=== PATIENT | female | born 1950 | race Caucasian/White ===

== ENCOUNTER → 2017-11-24 07:03 | Outpatient (CLI) | payer OTHER, SELFPAY ==
[2017-11-24 07:49] LABS: Add Manual Diff / Slide Review NO; Basophils Percent Auto 1.2 % (0-2); Eosinophils Percent Auto 5.9 % (2-4); Hematocrit 41.7 % (36-46); Hemoglobin 14.7 g/dL (12.0-16.0); Lymphocytes Percent Auto 30.4 % (25-40); Mean Corpuscular HGB Conc 35.2 % (30-36); Mean Corpuscular Hemoglobin 32.9 PG (26-34); Mean Corpuscular Volume 93.4 fL (80-100); Neutrophils Absolute Auto 1600 /uL (3000-5900); Neutrophils Percent Auto 47.5 % (50-75); Platelet Count 210 X10^3/uL (150-400); Red Blood Cell Count 4.46 X10^6/uL (4.0-5.2); White Blood Cell Count 3.3 X10^3/uL (4.5-11.0)
[2017-11-24 08:06] LABS: Alanine Aminotransferase 33 IU/L (9-52); Albumin 4.5 g/dL (3.5-5.0); Albumin Globulin Ratio 1.6 (1.0-2.8); Alkaline Phosphatase 75 U/L (38-126); Aspartate Aminotransferase 30 IU/L (14-36); Blood Urea Nitrogen 8 mg/dL (7-17); Calcium 9.4 mg/dL (8.4-10.2); Carbon Dioxide 29 mmol/L (22-32); Chloride 101 mmol/L (98-107); Estimated Glomerular Filt Rate > 60.0 mL/min (>60); Globulin 2.9 g/dL (1.7-4.1); Glucose 87 mg/dL (80-110); HEMOLYSIS < 15 (0-50); Potassium 4.2 mmol/L (3.4-5.1); Sodium 140 mmol/L (137-145); Total Protein 7.4 g/dL (6.3-8.2)
[2017-11-24 09:22] LABS: Free T4, Direct Thyroxine 0.78 ng/dL (0.78-2.19)
[2017-11-24 09:36] LABS: Thyroid Stimulating Hormone 8.29 uIU/mL (0.47-4.68)
[2017-11-24 11:55] LABS: Cholesterol 224 mg/dL (140-199); HDL Cholesterol 58 mg/dL (40-60); LDL Cholesterol Calculated 151 mg/dL (<100); Triglycerides 76 mg/dL (35-150)
== END ==
PROVIDERS: PCP Internal Medicine; Visit Provider Internal Medicine
DX: E03.9 Hypothyroidism, unspecified (principal); E78.2 Mixed hyperlipidemia; I10 Essential (primary) hypertension; E78.5 Hyperlipidemia, unspecified
CPT/HCPCS: 80053; 80061; 84439; 84443; 85025

== ENCOUNTER → 2018-02-09 10:44 | Outpatient (CLI) | payer OTHER, SELFPAY ==
[2018-02-09 12:11] LABS: Add Manual Diff / Slide Review NO; Basophils Percent Auto 0.8 % (0-2); Eosinophils Percent Auto 1.9 % (2-4); Hematocrit 41.6 % (36-46); Hemoglobin 14.6 g/dL (12.0-16.0); Lymphocytes Percent Auto 19.7 % (25-40); Mean Corpuscular Hemoglobin 32.8 PG (26-34); Mean Corpuscular Volume 93.5 fL (80-100); Monocytes Percent Auto 13.2 % (3-14); Neutrophils Absolute Auto 2500 /uL (3000-5900); Neutrophils Percent Auto 64.4 % (50-75); Platelet Count 204 X10^3/uL (150-400); Red Blood Cell Count 4.45 X10^6/uL (4.0-5.2); Red Cell Distribution Width 12.9 % (11.6-14.8); White Blood Cell Count 3.9 X10^3/uL (4.5-11.0)
[2018-02-09 12:22] LABS: Erythrocyte Sedimentation Rate 15 MM/HR (0-20)
[2018-02-09 12:25] LABS: Alanine Aminotransferase 32 IU/L (9-52); Albumin 4.9 g/dL (3.5-5.0); Albumin Globulin Ratio 1.5 (1.0-2.8); Alkaline Phosphatase 80 U/L (38-126); Aspartate Aminotransferase 32 IU/L (14-36); Bilirubin Total 0.9 mg/dL (0.2-1.3); Blood Urea Nitrogen 12 mg/dL (7-17); Calcium 9.5 mg/dL (8.4-10.2); Carbon Dioxide 28 mmol/L (22-32); Chloride 97 mmol/L (98-107); Estimated Glomerular Filt Rate > 60.0 mL/min (>60); Globulin 3.2 g/dL (1.7-4.1); Glucose 85 mg/dL (80-110); HEMOLYSIS < 15 (0-50); Magnesium 2.2 mg/dL (1.6-2.3); Potassium 4.3 mmol/L (3.4-5.1); Sodium 137 mmol/L (137-145); Total Protein 8.1 g/dL (6.3-8.2)
[2018-02-09 12:27] LABS: C-Reactive Protein Quant < 0.5 mg/dL (<1.0)
[2018-02-09 13:36] LABS: Free T4, Direct Thyroxine 1.06 ng/dL (0.78-2.19)
== END ==
PROVIDERS: PCP Internal Medicine; Visit Provider Internal Medicine
DX: E03.9 Hypothyroidism, unspecified (principal); E78.2 Mixed hyperlipidemia; I10 Essential (primary) hypertension
CPT/HCPCS: 36415; 80053; 83735; 84439; 84443; 85025; 85651; 86140

== ENCOUNTER → 2018-02-13 09:10 | Outpatient (CLI) | payer OTHER, SELFPAY ==
--- NOTE | 2018-03-12 07:12 | PM.CARDMON.1 ---
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 No significant dysrhythmias identified Clinical correlation suggested
== END ==
PROVIDERS: Family Provider Internal Medicine; PCP Internal Medicine; Visit Provider Internal Medicine
DX: I49.9 Cardiac arrhythmia, unspecified (principal)
CPT/HCPCS: 0296T; 0298T

== ENCOUNTER → 2019-11-09 07:56 | Outpatient (CLI) | payer OTHER, SELFPAY ==
[2019-11-09 08:56] LABS: Alanine Aminotransferase 21 IU/L (<35); Albumin 4.5 g/dL (3.5-5.0); Albumin Globulin Ratio 1.5 (1.0-2.8); Alkaline Phosphatase 83 U/L (38-126); Aspartate Aminotransferase 32 IU/L (14-36); BUN Creatinine Ratio 14.9 (6-22); Bilirubin Total 1.1 mg/dL (0.2-1.3); Blood Urea Nitrogen 7 mg/dL (7-17); Calcium 9.2 mg/dL (8.4-10.2); Carbon Dioxide 26 mmol/L (22-32); Chloride 102 mmol/L (98-107); Cholesterol 173 mg/dL (140-199); Estimated Glomerular Filt Rate > 60.0 mL/min (>60); Glucose 95 mg/dL (80-110); HDL Cholesterol 69 mg/dL (40-60); HEMOLYSIS < 15 (0-50); LDL Cholesterol Calculated 94 mg/dL (<100); Potassium 4.1 mmol/L (3.4-5.1); Sodium 135 mmol/L (137-145); Total Protein 7.5 g/dL (6.3-8.2); Triglycerides 50 mg/dL (35-150)
[2019-11-09 09:22] LABS: Thyroid Stimulating Hormone 2.35 uIU/mL (0.47-4.68)
== END ==
PROVIDERS: Family Provider Internal Medicine; PCP Internal Medicine; Referring Provider Internal Medicine; Visit Provider Internal Medicine
DX: E03.9 Hypothyroidism, unspecified (principal); E78.2 Mixed hyperlipidemia; I10 Essential (primary) hypertension
CPT/HCPCS: 36415; 80053; 80061; 84439; 84443

== ENCOUNTER → 2020-02-11 16:36 | Outpatient (CLI) | payer OTHER, SELFPAY ==
[2020-02-11 18:58] LABS: BUN Creatinine Ratio 23.3 (6-22); Blood Urea Nitrogen 10 mg/dL (7-17); Estimated Glomerular Filt Rate > 60.0 mL/min (>60)
== END ==
PROVIDERS: Family Provider Internal Medicine; PCP Internal Medicine; Referring Provider Internal Medicine; Visit Provider Internal Medicine
DX: Z01.812 Encounter for preprocedural laboratory examination (principal)
CPT/HCPCS: 36415; 82565; 84520

== ENCOUNTER → 2020-02-20 10:25 | Outpatient (CLI) | payer OTHER, SELFPAY ==
--- NOTE | 2020-02-20 10:43 | DI.CT.S_ITS ---
PROCEDURE: CT CHEST ABD PEL W CON INDICATIONS: left upper quad pain TECHNIQUE: After the administration of oral and intravenous contrast, 5 mm thick sections acquired from the lung apices to the symphysis. 5 mm coronal and sagittal reformats were performed, with additional 7 mm coronal MIP reformats through the lungs. For radiation dose reduction, the following was used: automated exposure control, adjustment of mA and/or kV according to patient size. COMPARISON: [facility], CT, ABDOMEN/PELVIS WITH CONTRAST, 04/23/2015, 12:35. FINDINGS: Image quality: Excellent. CHEST: Lungs and pleura: No acute airspace opacities. No pleural effusions or pneumothorax. Central and peripheral airways appear patent and normal in caliber. Mediastinum: Heart size is normal. No pericardial effusion. No mediastinal or hilar adenopathy by size criteria. Thoracic aorta and central pulmonary arteries are normal in size. Esophagus is normal in caliber. No hiatal hernia. Chest wall: No axillary or supraclavicular adenopathy by size criteria. Thyroid gland appears normal where well seen. Prior bilateral mastectomy, no adenopathy or recurrent mass lesion in the operative regions is found. ABDOMEN: Solid organs: Liver is normal in size and enhancement. Gallbladder appears normal. Biliary system is non dilated. Pancreas enhances normally. Spleen is normal in size and enhancement. No adrenal nodules. Kidneys demonstrate normal size and enhancement, without hydronephrosis. Peritoneum and bowel: Bowel loops demonstrate normal wall thickness and caliber. No free fluid or air. Nodes and vessels: No retroperitoneal or mesenteric adenopathy by size criteria. Aorta and inferior vena cava are normal in size. Miscellaneous: No ventral hernias. PELVIS: Genitourinary: Bladder wall thickness is normal. Miscellaneous: No inguinal hernias or adenopathy. Within the cecum there is a masslike structure, ovoid, and best seen on axial imaging centered on series 3, image 88. This measures up to 2.4 x 3.1 cm, and on the coronal and sagittal re-formation imaging this structure can be seen to be surrounded by stool within the cecum, with an appearance worrisome for representing a malignant or benign mass measuring up to 3.6 cm craniocaudad. No adjacent hyperemia or small lymph nodes are seen. No enlarged lymph nodes are identified. Bones: No suspicious bony lesions. Note is made of discogenic sclerosis between the posterior aspect of the L2 and L3 endplates, within the vertebral bodies, representing a progression of discogenic change from the comparison CT 04/23/15. No osseous metastatic disease is found. No vertebral body compression fractures. IMPRESSION: 1. The clinical history indicates left upper quadrant pain but the current examination does not show a discrete abnormality in that area. 2. Note is made of an ovoid soft tissue mass at the cecum, right lower quadrant, measuring up to 2.4 x 3.1 x 3.6 cm. This is surrounded by stool on all sides, and yet appears to represent a discrete entity separate from stool content. This raises concern for presence of benign or malignant mass. Given positioning it likely is not associated with current symptomatology but warrants additional evaluation. Villous adenoma, for example, can produce such an appearance. 3. Degenerative disc disease with reactive sclerosis is again seen at L2-L3, having progressed from a lesser degree of sclerotic change in April of 2015. Dictated by: Jason Weiss M.D. on 02/20/2020 at 13:34 Approved by: Jason Weiss M.D. on 02/20/2020 at 13:49
== END ==
PROVIDERS: Family Provider Internal Medicine; PCP Internal Medicine; Referring Provider Internal Medicine; Visit Provider Internal Medicine
DX: R07.89 Other chest pain (principal); R10.12 Left upper quadrant pain; M51.36 Other intervertebral disc degeneration, lumbar region; K63.9 Disease of intestine, unspecified; R10.13 Epigastric pain; R00.2 Palpitations
CPT/HCPCS: 71260; 74177; Q9967

== ENCOUNTER 2020-02-20 17:09 | Observation (INO) | payer OTHER, SELFPAY ==
[2020-02-20] VITALS (10 sets, daily range): BP systolic 144–178; BP diastolic 74–106; PULSE 78–120; RESP 13–28; TEMP 36.4–36.7; O2SAT 98–100; BMI 28.8
--- NOTE | 2020-02-20 19:28 | DI.RAD.S_ITS ---
PROCEDURE: XR CHEST 1V INDICATIONS: chest pain TECHNIQUE: One view of the chest was acquired. COMPARISON: [facility], CT, CT CHEST ABD PEL W CON, 02/20/2020, 11:33. [facility], CR, ABDOMEN ACUTE SERIES, 02/15/2016, 13:55. FINDINGS: Surgical changes and devices: None. Lungs and pleura: Lungs are clear. No pleural effusions or pneumothorax. Mediastinum: Mediastinal contours appear normal. Heart size is normal. Bones and chest wall: No suspicious bony lesions. Overlying soft tissues appear unremarkable. IMPRESSION: No acute cardiopulmonary disease. Dictated by: Carlos Rodriguez M.D. on 02/20/2020 at 20:18 Approved by: Carlos Rodriguez M.D. on 02/20/2020 at 20:19
[2020-02-20 19:43] LABS: Add Manual Diff / Slide Review NO; Basophils Absolute Auto 100 /uL (0-100); Basophils Percent Auto 0.8 % (0-2); Eosinophils Absolute Auto 100 /uL (0-450); Eosinophils Percent Auto 1.6 % (2-4); Hematocrit 43.1 % (36-46); Hemoglobin 14.9 g/dL (12.0-16.0); Lymphocytes Absolute Auto 1300 /uL (1100-4500); Lymphocytes Percent Auto 20.8 % (25-40); Mean Corpuscular HGB Conc 34.5 % (30-36); Mean Corpuscular Hemoglobin 32.2 PG (26-34); Mean Corpuscular Volume 93.3 fL (80-100); Monocytes Absolute Auto 700 /uL (0-900); Monocytes Percent Auto 11.4 % (3-14); Neutrophils Absolute Auto 3900 /uL (1500-7000); Neutrophils Percent Auto 65.4 % (50-75); Platelet Count 218 X10^3/uL (150-400); Red Blood Cell Count 4.62 X10^6/uL (4.0-5.2); Red Cell Distribution Width 13.2 % (11.6-14.8)
[2020-02-20 19:46] LABS: Prothrombin Time 11.8 SECONDS (10.1-12.7)
[2020-02-20 19:48] LABS: Alanine Aminotransferase 21 IU/L (<35); Albumin 4.7 g/dL (3.5-5.0); Albumin Globulin Ratio 1.6 (1.0-2.8); Alkaline Phosphatase 90 U/L (38-126); Aspartate Aminotransferase 32 IU/L (14-36); BUN Creatinine Ratio 22.7 (6-22); Bilirubin Total 1.1 mg/dL (0.2-1.3); Blood Urea Nitrogen 10 mg/dL (7-17); Calcium 9.2 mg/dL (8.4-10.2); Carbon Dioxide 25 mmol/L (22-32); Chloride 102 mmol/L (98-107); Creatine Kinase 75 U/L (30-135); Estimated Glomerular Filt Rate > 60.0 mL/min (>60); Glucose 99 mg/dL (80-110); HEMOLYSIS 19 (0-50); Lipase 57 U/L (23-300); PTT Partial Thromboplastin Tim 31 SECONDS (26.4-36.2); Sodium 132 mmol/L (137-145); Total Protein 7.7 g/dL (6.3-8.2)
[2020-02-20 19:58] LABS: Troponin I < 0.012 ng/mL (0.01-0.034)
--- NOTE | 2020-02-20 20:18 | ED_ITS ---
HPI - Chest Pain General Chief Complaint: Chest Pain Stated Complaint: heart pain Time Seen by Provider: 02/20/20 19:47 Source: patient and family Mode of arrival: Ambulatory History of Present Illness HPI narrative: Patient here with . Complains of worsening left-sided chest pain for the past week. Onset a couple months ago. Sent in by primary care Dr. Harden. Patient had outpatient CT scan of chest and abdomen pelvis today here at this facility. Continues to have pressure left-sided chest pain 05/13. Waxes and wanes. Does not radiate. Sometimes worse with movement. No exertional chest pain dyspnea or changes in fatigue. Denies any history of blood clots in legs or lungs before. Uncertain any stress test in the past. Strong family history of heart disease including siblings and father. No dyspnea. No recent illness cough cold congestion fever chills nausea vomiting or diarrhea. MD complaint: chest pain Related Data Home Medications Medication Instructions Recorded Confirmed CA PANTOTHENATE/FOLIC ACID/VIT 1 tab PO Q DAY #0 12/31/10 02/20/20 (MULTIVITAMIN) Calcium/Vitamin D (#CALCIUM 600 + 1 PO DAILY #0 09/28/11 02/11/20 VITAMIN D 600 MG-200 IU) VITAMIN D (Vitamin D3) 1,000 unit PO QDAY #0 05/26/12 02/20/20 [PROBIOTICS] 1 tab PO DAILY #0 03/07/16 02/20/20 aspirin 81 mg tablet,delayed 81 mg PO DAILY 08/25/17 02/20/20 release magnesium 200 mg tablet 200 mg PO BID 08/25/17 02/20/20 potassium 99 mg tablet 1 PO BID 08/25/17 02/11/20 vitamin E (dl, acetate) 400 unit 400 unit PO .M,W,F cap 05/13/19 02/20/20 capsule ibuprofen 200 mg PO TID 02/20/20 02/20/20 Previous Rx's Medication Instructions Recorded levothyroxine 50 mcg tablet 50 mcg PO QDAY #90 tab 11/21/19 triamcinolone acetonide 0.1 % 1 applictn TOP TID #80 gram 11/21/19 topical cream Allergies Allergy/AdvReac Type Severity Reaction Status Date / Time niacin Allergy Severe severe Verified 02/20/20 17:21 edema/low BP morphine Allergy Mild RED STREAKS Verified 02/20/20 17:21 penicillin G Allergy Mild RED STREAKS Verified 02/20/20 17:21 linaclotide [From LINZESS] AdvReac Intermediate abd pain Verified 02/20/20 17:21 increase hydromorphone AdvReac Mild PANIC Verified 02/20/20 17:21 ATTACK clorazepate dipotassium AdvReac uti's, GI Verified 02/20/20 17:21 sx gentamicin oph Allergy Severe redness Uncoded 02/20/20 17:21 and discharge from eyes TATTOO INK Allergy Mild SEVERE Uncoded 02/20/20 17:21 ITCHING Review of Systems Review of Systems Narrative: GENERAL: Denies chills, fatigue, malaise, fever, sweats. HEENT: Denies sinus pain, ear pain, sore throat, difficulty swallowing RESPIRATORY: Denies dyspnea, cough CARDIOVASCULAR: Complains chest pain, palpitations, denies edema, GASTROINTESTINAL: Denies nausea, vomiting, abdominal pain, diarrhea, constipation, melena. : Denies dysuria, frequency, hematuria MUSCULOSKELETAL: denies muscle or bony pain SKIN: Denies rash, skin lesions NEUROLOGIC: Denies weakness, headache, numbness, change in speech, confusion PSYCHIATRIC: No SI or HI or hallucinations ROS Unobtainable: All systems reviewed & are unremarkable except as noted in HPI and below Patient History Medical History Acquired hypothyroidism (09/05/12) Diverticulosis of large intestine without hemorrhage (03/20/15) Essential hypertension Gastroesophageal reflux disease without esophagitis Generalized anxiety disorder (02/15/16) History of adenomatous polyp of colon (12/31/10) History of malignant neoplasm of breast (12/31/10) Idiopathic peripheral neuropathy (09/27/13) Irritable bowel syndrome with constipation (02/01/16) Menopausal syndrome (12/31/10) Osteopenia (12/31/10) Primary generalized hypertrophic osteoarthrosis (12/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) Raynaud's phenomenon without gangrene (03/15/13) Surgical History History of abdominoplasty History of bilateral mastectomy History of carpal tunnel release History of total mastectomy Status post appendectomy Status post hysterectomy (01/2011) Family History Father Coronary atherosclerosis Type II diabetes mellitus Malignant neoplasm of prostate Grandmother Uterine cancer Mother Breast CA Social History household members: spouse Smoking Status: Never smoker alcohol intake: current Smoking Status: Never smoker alcohol intake frequency: 3 or more drinks per day Exam Narrative Exam Narrative: GENERAL: patient appears stated age. Well-nourished, well- developed patient, in no distress, not toxic not dyspneic HEAD: Normocephalic. EYES: Pupils equal round and reactive. No scleral icterus. No injection no discharge ENT: Mucous membranes moist. No drooling no tongue elevation no trismus no malocclusion NECK: Trachea midline. Non tender CARDIOVASCULAR: Regular rate and rhythm without murmurs, gallops, or rubs. RESPIRATORY: Clear to auscultation. Breath sounds equal bilaterally. No wheezes, rales, or rhonchi. GASTROINTESTINAL: Abdomen soft, non-tender, nondistended. EXTREMITIES: No gross deformities. BACK: Nontender without deformity or crepitance. No flank tenderness. NEURO: AOx4. SKIN: Warm and dry PSYCH: Not anxious, is cooperative Initial Vital Signs Initial Vital Signs: Vital Signs Temperature 97.6 F 02/20/20 17:19 Pulse Rate 88 02/20/20 17:19 Respiratory Rate 16 02/20/20 17:19 Blood Pressure 153/83 H 02/20/20 17:19 Pulse Oximetry 100 02/20/20 17:19 Course Course Course Narrative: Blood pressure noted while in department. Patient is anxious. Heart rate did elevate due to anxiety. Will give anxiolytics. Patient has had benzodiazepines without side effects in the past. Decision to Admit Date: 02/20/20 Decision to Admit time: 20:37 Orders Ordered: ED Orders 02/20/20 19:20 Comprehensive Metabolic Panel Stat Lipase Stat Partial Thromboplastin Time Stat Prothrombin Time INR Stat Troponin & CK Cardiac Panel Stat 02/20/20 19:22 Complete Blood Count AUTO DIFF Stat 02/20/20 19:28 XR chest 1V Stat EKG-12 Lead Stat Acetaminophen (Acetaminophen 325 Mg Tablet) 650 mg PO Q6HR PRN PRN Reason: Fever/Mild Pain (1-3) Aspirin (Aspirin Ec 81 Mg Tablet) 81 mg PO DAILY [facility] Enoxaparin Sodium (Enoxaparin 40 Mg/0.4 Ml Syringe) 40 mg SUBCUT DAILY [facility] Ibuprofen (Ibuprofen 600 Mg Tablet) 600 mg PO Q6HR PRN PRN Reason: Fever/Mild Pain (1-3) Levothyroxine Sodium (Levothyroxine 50 Mcg Tablet) 50 mcg PO QACBREAK [facility] Naloxone HCl (Naloxone 0.4 Mg/Ml Vial) 0.2 mg IV Q2MIN PRN PRN Reason: Opiate Reversal Nitroglycerin (Nitroglycerin 0.4 Mg Sl Tab) 0.4 mg SL [id number] PRN PRN Reason: Chest Pain Vitamin D (Cholecalciferol (Vitamin D3) 1,000 Unit Tablet) 1,000 unit PO DAILY [facility] Vitamin E (Vitamin E 400 Unit Capsule) 400 unit PO SEEINSTR [facility] Discontinued Medications Amlodipine Besylate (Amlodipine 5 Mg Tablet) 5 mg PO NOW ONE Stop: 02/20/20 21:29 Last Admin: 02/20/20 22:43 Dose: 5 mg Documented by: KAYLEY Aspirin (Aspirin 81 Mg Chew Tab) 243 mg PO NOW ONE Stop: 02/20/20 20:13 Last Admin: 02/20/20 20:32 Dose: 243 mg Documented by: MIKO Diazepam (Diazepam 5 Mg Tablet) 5 mg PO NOW ONE Stop: 02/20/20 20:56 Last Admin: 02/20/20 20:58 Dose: 5 mg Documented by: MIKO Hydroxyzine Pamoate (Hydroxyzine Pamoate 25 Mg Capsule) 25 mg PO NOW ONE Stop: 02/20/20 20:11 Last Admin: 02/20/20 20:33 Dose: 25 mg Documented by: MIKO Metoprolol Tartrate (Metoprolol Ir 25 Mg Tablet) 25 mg PO NOW ONE Stop: 02/20/20 23:33 Last Admin: 02/21/20 00:17 Dose: 25 mg Documented by: DARRELL Metoprolol Tartrate (Metoprolol Ir 25 Mg Tablet) 25 mg PO NOW ONE Stop: 02/21/20 02:27 Last Admin: 02/21/20 02:54 Dose: 25 mg Documented by: DARRELL Nitroglycerin (Nitroglycerin Oint 1 Inch/Gm Oint...G.) 0.5 inch TOP NOW ONE Stop: 02/20/20 20:14 Last Admin: 02/20/20 20:33 Dose: 0.5 inch Documented by: MIKO Reevaluation(s) Reevaluation #1: Reviewed results with patient. She is aware of the CT scan results. She does desires admission hospital for stress test. It would give h er relief and peace of mind but this test behind her. Consultations Consultation #1: Spoke with Dr. Harden, primary care. He will admit Time: 20:38 Vital Signs Vital signs: Vital Signs - 8 hr 02/20/20 19:13 02/20/20 19:14 02/20/20 19:30 Pulse Rate 120 H 114 H Respiratory Rate 13 28 H Blood Pressure 178/106 H Pulse Oximetry 100 100 99 02/20/20 20:00 02/20/20 20:30 02/20/20 20:33 Pulse Rate 78 84 83 Respiratory Rate Blood Pressure 178/106 H Pulse Oximetry 98 98 MDM - Chest Pain Differential Diagnosis Differential diagnosis: Likely stable angina, unstable angina pectoris, atypical chest pain and chest pain Medical Records Data Attestation: I reviewed the patient's medical records. Medical records narrative: [address] [id number] Scan ReportSigned Patient: Mitzi Santoro [facility]#: [id number]: [id number]:[id number]/Sex: 69 / FDate of Service: 02/20/20Loc: CTAccession Number: [id number] Procedure: CT chest abd pel w con Ordering Provider: Talon Harden MD PROCEDURE: CT CHEST ABD PEL W CON INDICATIONS: left upper quad pain TECHNIQUE: After the administration of oral and intravenous contrast, 5 mm thick sections acquired from the lung apices to the symphysis. 5 mm coronal and sagittal reformats were performed, with additional 7 mm coronal MIP reformats through the lungs. For radiation dose reduction, the following was used: automated exposure control, adjustment of mA and/or kV according to patient size. COMPARISON: [facility], CT, ABDOMEN/PELVIS WITH CONTRAST, 04/23/2015, 12 :35. FINDINGS: Image quality: Excellent. CHEST: Lungs and pleura: No acute airspace opacities. No pleural effusions or pneumothorax. Central and peripheral airways appear patent and normal in caliber. Mediastinum: Heart size is normal. No pericardial effusion. No mediastinal or hilar adenopathy by size criteria. Thoracic aorta and central pulmonary arteries are normal in size. Esophagus is normal in caliber. No hiatal hernia. Chest wall: No axillary or supraclavicular adenopathy by size criteria. Thyroid gland appears normal where well seen. Prior bilateral mastectomy, no adenopathy or recurrent mass lesion in the operative regions is found. ABDOMEN: Solid organs: Liver is normal in size and enhancement. Gallbladder appears normal. Biliary system is non dilated. Pancreas enhances normally. Spleen is normal in size and enhancement. No adrenal nodules. Kidneys demonstrate normal size and enhancement, without hydronephrosis. Peritoneum and bowel: Bowel loops demonstrate normal wall thickness and caliber. No free fluid or air. Nodes and vessels: No retroperitoneal or mesenteric adenopathy by size criteria. Aorta and inferior vena cava are normal in size. Miscellaneous: No ventral hernias. PELVIS: Genitourinary: Bladder wall thickness is normal. Miscellaneous: No inguinal hernias or adenopathy. Within the cecum there is a masslike structure, ovoid, and best seen on axial imaging centered on series 3, image 88. This measures up to 2.4 x 3.1 cm, and on the coronal and sagittal re-formation imaging this structure can be seen to be surrounded by stool within the cecum, with an appearance worrisome for representing a malignant or benign mass measuring up to 3.6 cm craniocaudad. No adjacent hyperemia or small lymph nodes are seen. No enlarged lymph nodes are identified. Bones: No suspicious bony lesions. Note is made of discogenic sclerosis between the posterior aspect of the L2 and L3 endplates, within the vertebral bodies, representing a progression of discogenic change from the comparison CT 04/23/15. No osseous metastatic disease is found. No vertebral body compression fractures. IMPRESSION: 1. The clinical history indicates left upper quadrant pain but the current examination does not show a discrete abnormality in that area. 2. Note is made of an ovoid soft tissue mass at the cecum, right lower quadrant, measuring up to 2.4 x 3.1 x 3.6 cm. This is surrounded by stool on all sides, and yet appears to represent a discrete entity separate from stool content. This raises concern for presence of benign or malignant mass. Given positioning it likely is not associated with current symptomatology but warrants additional evaluation. Villous adenoma, for example, can produce such an appearance. 3. Degenerative disc disease with reactive sclerosis is again seen at L2-L3, having progressed from a lesser degree of sclerotic change in April of 2015. Dictated by: Jason Weiss M.D. on 02/20/2020 at 13:34 Approved by: Jason Weiss M.D. on 02/20/2020 at 13:49 Lab Data Attestation: I reviewed the patient's lab results. Result diagrams: 02/20/20 19:22 02/20/20 19:20 Labs: Lab Results 02/20/20 02/20/20 02/20/20 Range/Units 19:20 19: 19:22 WBC 6.0 (4.5-11.0) X10^3/uL RBC 4.62 (4.0-5.2) X10^6/uL Hgb 14.9 (12.0-16.0) g/dL Hct 43.1 (36-46) % MCV 93.3 (80-100) fL MCH 32.2 (26-34) PG MCHC 34.5 (30-36) % RDW 13.2 (11.6-14.8) % Plt Count 218 (150-400) X10^3/uL Neut % (Auto) 65.4 (50-75) % Lymph % (Auto) 20.8 L (25-40) % [place] % (Auto) 11.4 (3-14) % Eos % (Auto) 1.6 L (2-4) % Baso % (Auto) 0.8 (0-2) % Neut # (Auto) 3900 (9901-3114) /uL Lymph # (Auto) 1300 (0872-9531) /uL [place] # (Auto) 700 (0-900) /uL Eos # (Auto) 100 (0-450) /uL Baso # (Auto) 100 (0-100) /uL PT 11.8 (10.1-12.7) SECONDS INR 1.0 (0.9-1.3) APTT 31 (26.4-36.2) SECONDS Sodium 132 L (137-145) mmol/L Potassium 4.0 (3.4-5.1) mmol/L Chloride 102 (98-107) mmol/L Carbon Dioxide 25 (22-32) mmol/L BUN 10 (7-17) mg/dL Creatinine 0.44 L (0.52-1.04) mg/dL Estimated GFR > 60.0 (>60) mL/min BUN/Creatinine Ratio 22.7 H (6-22) Glucose 99 (80-110) mg/dL Calcium 9.2 (8.4-10.2) mg/dL Total Bilirubin 1.1 (0.2-1.3) mg/dL AST 32 (14-36) IU/L ALT 21 (<35) IU/L Alkaline Phosphatase 90 (38-126) U/L Total Creatine Kinase 75 (30-135) U/L CK-MB (CK-2) TNP CK-MB (CK-2) Rel Index TNP Troponin I < 0.012 (0.01-0.034) ng/mL Total Protein 7.7 (6.3-8.2) g/dL Albumin 4.7 (3.5-5.0) g/dL Globulin 3.0 (1.7-4.1) g/dL Albumin/Globulin Ratio 1.6 (1.0-2.8) Lipase 57 (23-300) U/L Imaging Data Chest x-ray: Radiologist's Impression: [address] [id number] ReportSigned Patient: Mitzi Santoro [facility]#: [id number]: 9Acct:[id number]/Sex: 69 / FDate of Service: 02/20/20Loc: EDAccession Number: [id number] Procedure: XR chest 1V Ordering Provider: Benton Green MD PROCEDURE: XR CHEST 1V INDICATIONS: chest pain TECHNIQUE: One view of the chest was acquired. COMPARISON: [facility], CT, CT CHEST ABD PEL W CON, 02/20/2020, 11:33. [facility], CR, ABDOMEN ACUTE SERIES, 02/15/2016, 13:55. FINDINGS: Surgical changes and devices: None. Lungs and pleura: Lungs are clear. No pleural effusions or pneumothorax. Mediastinum: Mediastinal contours appear normal. Heart size is normal. Bones and chest wall: No suspicious bony lesions. Overlying soft tissues appear unremarkable. IMPRESSION: No acute cardiopulmonary disease. Dictated by: Carlos Rodriguez M.D. on 02/20/2020 at 20:18 Approved by: Carlos Rodriguez M.D. on 02/20/2020 at 20:19 ECG Data Attestation: I personally reviewed and interpreted this ECG as follows: Interpretation: Sinus rhythm, ventricular rate 99. No ST elevation or depression Time 2053. Repeat EKG sinus rhythm rate 92. No ST elevation depression. No change from previous MDM Narrative Medical decision making narrative: Appropriate for admission and stress test. Has had ongoing left-sided chest pain. Discharge Plan Departure Patient Disposition: Admitted as Observation Clinical Impression: Chest pain Qualifiers: Chest pain type: unspecified Qualified Code(s): R07.9 - Chest pain, unspecified Admit Date/Time: 02/20/20 20:37 Admit Provider: Talon Harden
[2020-02-20] MEDS: ASPIRIN 81 MG CHEW TAB 243 MG PO (20:32)
[2020-02-20] MEDS: NITROGLYCERIN OINT 1 INCH/GM OINT...G. 0.5 INCH TOP (20:33)
[2020-02-20] MEDS: hydrOXYzine pamoate 25 MG CAPSULE PO (20:33)
--- NOTE | 2020-02-20 20:48 | PM.HP.1 ---
History of Present Illness History of Present Illness Chief complaint: heart pain Narrative: See outpatient note of 02/11/20 for background. Patient has been experiencing left upper quadrant abdominal pain verses left-sided chest pain off and on for several months. She did not seek assistance due to concerns over the coronavirus pandemic. She had a CT scan done of her abdomen which demonstrated a right lower quadrant filling defect within the cecum but no abnormality in the left upper quadrant. When she was phoned to discuss these findings on CT she reported having irregular heartbeat as well as persistence of perhaps more chest pressure/persistence of her left upper quadrant discomfort She was instructed to go to the emergency department for evaluation. Evaluation there was unremarkable except for some supraventricular dysrhythmias. It was elected to admit her for stress testing and continued monitoring Patient History Medical History Acquired hypothyroidism (09/05/12) Diverticulosis of large intestine without hemorrhage (03/20/15) Essential hypertension Gastroesophageal reflux disease without esophagitis Generalized anxiety disorder (02/15/16) History of adenomatous polyp of colon (12/31/10) History of malignant neoplasm of breast (12/31/10) Idiopathic peripheral neuropathy (09/27/13) Irritable bowel syndrome with constipation (02/01/16) Menopausal syndrome (12/31/10) Osteopenia (12/31/10) Primary generalized hypertrophic osteoarthrosis (12/31/10) Raynaud's phenomenon without gangrene (03/15/13) Surgical History History of abdominoplasty History of bilateral mastectomy History of carpal tunnel release History of total mastectomy Status post appendectomy Status post hysterectomy (01/2011) Family & Social History Family History Father Coronary atherosclerosis Type II diabetes mellitus Malignant neoplasm of prostate Grandmother Uterine cancer Mother Breast CA Safety & Behavioral: Feels Safe in Current Yes Environment Been Physically Hurt or No Threatened By a Person Tobacco & Substance use: Smoking Status Never smoker alcohol intake frequency 3 or more drinks per day Meds Home Medications and Allergies Home Medications Medication Instructions Recorded Confirmed Type CA PANTOTHENATE/FOLIC ACID/VIT 1 tab PO Q DAY #0 12/31/10 02/20/20 History (MULTIVITAMIN) Calcium/Vitamin D (#CALCIUM 600 + 1 cap PO DAILY #0 09/28/11 02/21/20 History VITAMIN D 600 MG-200 IU) VITAMIN D (Vitamin D3) 1,000 unit PO QDAY #0 05/26/12 02/20/20 History [PROBIOTICS] 1 tab PO DAILY #0 03/07/16 02/20/20 History aspirin 81 mg tablet,delayed 81 mg PO DAILY 08/25/17 02/20/20 History release magnesium 200 mg tablet 200 mg PO BID 08/25/17 02/20/20 History potassium 99 mg tablet 99 mg PO BID 08/25/17 02/21/20 History vitamin E (dl, acetate) 400 unit 400 unit PO .M,W,F cap 05/13/19 02/20/20 History capsule levothyroxine 50 mcg tablet 50 mcg PO QDAY #90 tab 11/21/19 02/20/20 Rx triamcinolone acetonide 0.1 % 1 applictn TOP TID #80 gram 11/21/19 02/20/20 Rx topical cream ibuprofen 200 mg PO TID 02/20/20 02/20/20 History metoprolol tartrate 50 mg PO BID #60 tab 02/21/20 Rx Allergies Allergy/AdvReac Type Severity Reaction Status Date / Time gentamicin Allergy Severe OPHTH - Verified 02/21/20 13:14 REDNESS AND DISCHARGE FROM EYES niacin Allergy Severe severe Verified 02/20/20 17:21 edema/low BP morphine Allergy Mild RED STREAKS Verified 02/20/20 17:21 penicillin G Allergy Mild RED STREAKS Verified 02/20/20 17:21 linaclotide [From LINZESS] AdvReac Intermediate abd pain Verified 02/20/20 17:21 increase hydromorphone AdvReac Mild PANIC Verified 02/20/20 17:21 ATTACK clorazepate dipotassium AdvReac uti's, GI Verified 02/20/20 17:21 sx TATTOO INK Allergy Mild SEVERE Uncoded 02/20/20 17:21 ITCHING Review of Systems Constitutional Constitutional: Denies excessive sweating, Denies fever(s), Denies headache(s), Denies weakness, Denies weight gain and Denies weight loss Eyes Eyes: Denies change in vision, Denies itchy eyes, Denies loss of vision and Denies other visual disturbances ENT Ears, Nose, Mouth, and Throat: No change in voice, No dysphagia, No dizziness, No otalgia, No headache(s), No hoarseness, No lip swelling, No neck pain, No sore throat, No throat swelling and No tongue swelling Cardiovascular Cardiovascular: Reports chest pain, Denies syncope, Denies rapid heart rate, Reports irregular heart rhythm, Denies dyspnea, Denies dyspnea on exertion and Denies slow heart rate Respiratory Respiratory: Denies chest congestion, Denies cough, Denies hemoptysis, Denies dyspnea, Denies dyspnea on exertion, Denies stridor and Denies wheezing Gastrointestinal Gastrointestinal: Denies abdominal pain, Denies bloating, Denies change in bowel habits, Denies change in stool character, Denies dysphagia, Denies nausea, Denies vomiting and Denies hematemesis Genitourinary Genitourinary: Denies hematuria, Denies urinary frequency and Denies difficulty voiding Musculoskeletal Musculoskeletal: Denies abnormal gait, Denies myalgias, Denies arthralgias, Denies limited range of motion and Denies neck pain Integumentary/Breasts Skin/Breast: Denies bleeding lesions, Denies change in pigmentation, Denies changing lesions, Denies new lesions, Denies rash, Denies skin swelling, Denies sores and Denies jaundice Neurologic Neurologic: Denies abnormal speech, Denies abnormal gait, Denies behavioral changes, Denies confusion, Denies dizziness, Denies syncope, Denies headache(s), Denies loss of vision, Denies memory loss, Denies seizure-like activity, Denies paresthesias and Denies weakness Psychiatric Psychiatric: Reports abnormal sleep pattern, Reports anxiety, Denies behavioral changes, Denies change in appetite, Denies confusion, Denies difficulty concentrating, Denies auditory hallucinations, Denies memory loss, Denies mood swings and Denies suicidal ideation Endocrine Endocrine: Denies excessive sweating, Denies flushing and Denies polyuria Hematologic/Lymphatic Hematologic/Lymphatic: Denies easy bleeding, Denies easy bruising and Denies lymphadenopathy Allergic/Immunologic Allergic/Immunologic: Denies urticaria, Denies itchy eyes, Denies lip swelling, Denies throat swelling, Denies tongue swelling and Denies wheezing Exam Vital Signs (past 8 hours): - 02/20/20 17:19 02/20/20 19:13 02/20/20 19:14 Temperature 97.6 F Pulse Rate 88 120 H Respiratory Rate 16 13 Blood Pressure 153/83 H 178/106 H Pulse Oximetry 100 100 100 02/20/20 20:33 Temperature Pulse Rate 83 Respiratory Rate Blood Pressure 178/106 H Pulse Oximetry Oxygen Delivery Method Room Air Narrative Exam Narrative: Elderly female in no obvious distress lying in hospital bed HEENT-unremarkable, normocephalic atraumatic Neck-no lymphadenopathy no bruits Lungs-clear anteriorly and posteriorly no wheezes no crackles good breath sounds Heart-regular rate and rhythm, no murmur, rub, or gallop. normal S1-S2 Abdomen-positive bowel tones, soft, nontender, nondistended, no hepatosplenomegaly, no masses palpable Neuro-normal to screening exam, gait not tested Extremities-no cyanosis clubbing or edema Objective Labs Result Diagrams: 02/20/20 19:22 02/20/20 19:20 Labs: Laboratory Results - last 24 hr 02/20/20 02/20/20 02/20/20 19:20 19:20 19:22 WBC 6.0 RBC 4.62 Hgb 14.9 Hct 43.1 MCV 93.3 MCH 32.2 MCHC 34.5 RDW 13.2 Plt Count 218 Neut % (Auto) 65.4 Lymph % (Auto) 20.8 L Reynolds % (Auto) 11.4 Eos % (Auto) 1.6 L Baso % (Auto) 0.8 Neut # (Auto) 3900 Lymph # (Auto) 1300 Reynolds # (Auto) 700 Eos # (Auto) 100 Baso # (Auto) 100 PT 11.8 INR 1.0 APTT 31 Sodium 132 L Potassium 4.0 Chloride 102 Carbon Dioxide 25 BUN 10 Creatinine 0.44 L Estimated GFR > 60.0 BUN/Creatinine Ratio 22.7 H Glucose 99 Calcium 9.2 Total Bilirubin 1.1 AST 32 ALT 21 Alkaline Phosphatase 90 Total Creatine Kinase 75 CK-MB (CK-2) TNP CK-MB (CK-2) Rel Index TNP Troponin I < 0.012 Total Protein 7.7 Albumin 4.7 Globulin 3.0 Albumin/Globulin Ratio 1.6 Lipase 57 Assessment & Plan Assessment & Plan narrative: 1. Chest pain- serial troponin, 12 lead ECG, obtain pharmacological stress test. 2. Dysrhythmia-patient demonstrating bursts of SVT which is likely the irregularity she was reporting over the phone. This is symptomatic for her. Will obtain echocardiogram and initiate beta-dora therapy. In this particular patient her level of anxiety is quite extraordinarily elevated and I believe that is causing release of catecholamines which may be contributing to this dysrhythmia. Of course will also look for structural heart disease and ischemic heart disease as above. 3. Hypertension -as above will start metoprolol. Plan is for to have a pharmacological stress test so beta-dora therapy in this setting is acceptable. 4. Hypothyroid- continue usual meds. 5. Anxiety-patient has declined medication for treatment of her anxiety in the past. Perhaps beta-dora will have some beneficial effect in this regard as well.
[2020-02-20] MEDS: diazePAM 5 MG TABLET PO (20:58)
[2020-02-20 21:33] LABS: COVID19 -Nasal RAPID Negative (Negative)
--- NOTE | 2020-02-20 22:08 | PC.NURSE ---
Addendum entered by Patt Knox R.N. 02/20/20 23:42: Dr. Harden notified that pt arrived with nitro paste in place. Order received to remove nitro paste. Nitro paste removed at 23:40. When this RN went into pt's room at this time, pt reported that she had taken her levothyroxine that her had brought in (0.05 mg). Pt instructed on medication management, notified that pt's medications can't be stored at bedside. Medication bottle sent to the coordinator for lock-up. Pt notified that medications must be documented and administered by RN. Original Note: Admission Note: Pt admitted from ER with NSR with frequent PACs and self-limiting runs of SVT. MD notified, metoprolol 25 mg PO ordered. Pt is A and O x4. Denies pain at this time. Pt with neuropathy in BLE. Pt arrives on RA, SpO2 99%. Denies SOB. Lungs CTA in all field. RR 14. Pt arrives in SR with frequent PAC's noted. Occasional self-limiting runs of SVT, pt reports that she can sense palpitations during the runs. Pt reports that she is no longer having chest pain, and that the chest pain/discomfort was relieved after the dose of IV valium she was given in the ER. 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 Bilateral neuropathy in feet. Bilateral bunions. Pt with call light in reach, instructed to call for assistance with transferring. Will notify MD with changes.
[2020-02-20] MEDS: AMLODIPINE 5 MG TABLET PO (22:43)
[2020-02-21] VITALS (10 sets, daily range): BP systolic 112–142; BP diastolic 62–96; PULSE 57–130; RESP 15–20; TEMP 36.2–37.2; O2SAT 97–99
[2020-02-21] MEDS: METOPROLOL IR 25 MG TABLET PO ×2 (00:17→02:54)
[2020-02-21 03:38] LABS: Troponin I < 0.012 ng/mL (0.01-0.034)
--- NOTE | 2020-02-21 04:07 | PC.NURSE ---
Addendum entered by Sweta Gaspar R.N. 02/21/20 06:27: Pt continues to experience tachy - bradycardia, increases with movement. Dr Pereyra aware Addendum entered by Sweta Gaspar R.N. 02/21/20 05:25: When upto use bathroom pt HR upto 140s. Tachy runs at 140 and then HR drops to low 50s. Pt reports heart palpitation but no dizziness or chest pain. Now pt resting in bed with HR running in the 50s. [facility] Original Note: 0200 -late entry - Pt HR frequently upto 130-150s with short SVT runs again. Not resolving with vagal maneuver. Pt reports feeling palpitations. No complaints of chest pain. Paged Dr Peryera. TO to give another 25mg PO metoprolol. Pt now resting with HR running in the mid 50s. [facility] alert and oriented x4. Steady on feet. No pain.
--- NOTE | 2020-02-21 06:46 | DI.ECHO.S_ITS ---
[facility]---------+ [facility] +---------+ : : [address] : [place] : : : : [id number] : : : : Phone: [phone]+ Echocardiogram Report + + :Name: FRANCO RODRIGUEZ Study Date: 02/21/2020 Height: 64 in : :[facility] Weight: 175 lb : : Gender: Female BSA: 1.8 m2 : :: 1950 Age: 69 yrs BP: 124/62 mmHg: :Reason For Study: Chest Pain : : Performed By: Monae Clinton : :Referring: SOCO LEE R : + + Interpretation Summary The patient was in normal sinus rhythm with frequent short run of narrow QRS tachycardia which appears to be regular likely SVT as well as frequent PACs and occasional PVCs. The left ventricle is normal in size and wall thickness. The ejection fraction is difficult to assess due to abnormal rhythm, however it is estimated to be 50 to 55% when she is in sinus rhythm. During frequent PACs and short run of SVT, dyssynchrony of LV seen and LV ejection fraction appears to be decreased from baseline. During sinus rhythm LV ejection fraction is in low normal range. The right ventricle is normal in size and function. There is mild tricuspid regurgitation. Compared to the prior echo exam, there has been no change in TR severity. The right ventricular systolic pressure is estimated to be at least 29 mmHg based on an estimated right atrial pressure of 3 mm Hg. Procedure: A two-dimensional transthoracic echocardiogram with color flow and Doppler was performed. There is no prior echocardiogram noted for this patient. Comparison is made with the echocardiogram of 08/30/2011. The patient was in normal sinus rhythm with frequent short run of narrow QRS tachycardia which appears to be regular likely SVT as well as frequent PACs and occasional PVCs. Left Ventricle: The left ventricle is normal in size and wall thickness. There is no thrombus. The ejection fraction is difficult to assess due to abnormal rhythm, however it is estimated to be 50 to 55% when she is in sinus rhythm. During frequent PACs and short run of SVT, dyssynchrony of LV seen and LV ejection fraction appears to be decreased from baseline. During sinus rhythm LV ejection fraction in low normal range. Diastolic parameters suggest a relaxation abnormality of the left ventricle, consistent with probable normal filling pressures. Right Ventricle: The right ventricle is normal in size and function. Atria: The left atrium is mildly dilated. The left atrium has mildly decreased in size since the prior echo exam. Right atrial size is normal. There is no Doppler evidence for an interatrial shunt. Mitral Valve: There is mild mitral annular calcification. There is trace mitral regurgitation. Aortic Valve: The aortic valve is trileaflet. The aortic valve opens well. There is no aortic valve stenosis. No aortic regurgitation is present. Tricuspid Valve: The tricuspid valve is normal. There is mild tricuspid regurgitation. The right ventricular systolic pressure is estimated to be at least 29 mmHg based on an estimated right atrial pressure of 3 mm Hg. Compared to the prior echo exam, there has been no change in TR severity. Pulmonic Valve: The pulmonic valve leaflets are thin and pliable; valve motion is normal. There is a trace or physiologic amount of pulmonic regurgitation. Great Vessels: The aortic root is normal size. The ascending aorta is at the upper limits of normal in size. The pulmonary artery is normal size. The IVC is of normal diameter and collapses greater than 50% with a sniff. This suggests a low right atrial pressure of 3 mm Hg. Pericardium/ Pleura There is no pericardial effusion. There is an anterior echo-free space consistent with a fat pad. MMode/2D Measurements & Calculations LVIDd: 5.1 cm LVOT diam: 2.4 cm LVIDs: 3.2 cm Ao root diam: 3.5 cm FS: 37.5 % asc Aorta Diam: 3.2 cm IVSd: 0.77 cm LVPWd: 0.82 cm LV sheth. diameter/BSA (cm/m^2): 2.7 LV sys. diameter/BSA (cm/m^2): 1.7 LA A2 area: 22.7 cm2 RA long axis: 5.6 cm LA A4 area: 17.3 cm2 RA area: 19.3 cm2 LA length (vol): 5.1 cm RA vol: 56.6 ml LA vol: 65.9 ml RA : 30.7 ml/m2 LA vol index: 35.6 ml/m2 IVC diam: 2.0 cm RVD1 (basal): 3.7 cm TAPSE: 1.9 cm Doppler Measurements & Calculations Ao V2 max: 129.7 cm/sec LVOT Max Sunny: 116.7 cm/sec Ao V2 mean: 86.7 cm/sec LV V1 max P.4 mmHg Ao max P.8 mmHg LV V1 VTI: 22.5 cm Ao mean P.4 mmHg MER(I,D): 3.9 cm2 Ao V2 VTI: 24.9 cm MER(V,D): 3.9 cm2 sev ratio: 0.91 MER indexed to BSA (cm^2/m^2): 2.1 MV E max sunny: 53.6 cm/sec TR max sunny: 256.8 cm/sec MV A max sunny: 91.7 cm/sec TR max P.4 mmHg MV E/A: 0.58 PA V2 max: 63.3 cm/sec Med Peak E' Sunny: 5.4 cm/sec PA V2 mean: 41.7 cm/sec E/E' med: 10.0 PA mean P.77 mmHg Lat Peak E' Sunny: 9.7 cm/sec PA Accel Time: 0.04 sec E/E' lat: 5.5 E/e' average: 7.8 MV dec time: 0.18 sec SV(LVOT): 98.0 ml Reading Physician:01:24 PM
[2020-02-21] MEDS: hydrOXYzine pamoate 25 MG CAPSULE PO ×2 (08:14→14:15)
[2020-02-21] MEDS: ASPIRIN EC 81 MG TABLET PO (08:15)
[2020-02-21] MEDS: CHOLECALCIFEROL (VITAMIN D3) 1,000 UNIT TABLET 1000 UNIT PO (08:15)
[2020-02-21] MEDS: ENOXAPARIN 40 MG/0.4 ML SYRINGE SUBCUT (08:15)
[2020-02-21] MEDS: METOPROLOL IR 50 MG TABLET PO (08:15)
--- NOTE | 2020-02-21 09:38 | PC.NURSE ---
Addendum entered by Eze Ruiz R.N. 02/21/20 13:36: Spoke with Dr. Harden regarding rate/rhythm. Orders received. Dr. Harden states ok to wait until pt gets back from stress test to start IVFs and IV metoprolol. Addendum entered by Eze Ruiz R.N. 02/21/20 12:10: Pts HR has remained labile between SB-SR-SVT rates 40s-140s. Pt reports symptoms are unchanged from AM assessment. States they aren't any better or any worse. Called to Dr. Harden's office and left message with his nurse regarding HR/rhythm unchanged. Awaiting return call. Original Note: 0800- Dr. Harden on rounds at bedside. Reviewed pt with continued tachy/stevie rhythm alternating between SB 40s and up to 140s SVT. Reported pt with symptoms of chest discomfort. Reviewed plan of care including cardiac stress test today. Clarified metoprolol/dose. Instruction received to give metoprolol as ordered. Pt is AO x4, mildly anxious, agreeable to plan of care. at bedside.
[2020-02-21] MEDS: SODIUM CHLORIDE 0.9% 500 ML 1000 ML IV (14:15)
[2020-02-21] MEDS: METOPROLOL TARTRATE 5 MG/5 ML INJ IV (14:15)
[2020-02-21 14:53] LABS: Troponin I < 0.012 ng/mL (0.01-0.034)
--- NOTE | 2020-02-21 15:50 | CM.DANOTE ---
Discharge Planning/Care Management DCP: assessment: case received, EMR reviewed and met briefly with pt and her , at bedside. They were in process of speaking with han GROSS and hoping for results to be given soon on the stress test. They wonder when Dr. Harden will be here to go over results. Pt is a 69 year old female who admitted last night to care of PCP: Dr. Harden. Payer: [facility] Admission status: OBS: confirmed by MANN Noguera P: likely a d/c to home when pt is stable but will see what Dr. Harden says. DCP team will check in again tomorrow if pt is still here. Advanced directive, confirm from FAMILY Start: 02/20/20 22:06 Freq: Q24H Status: Active Protocol: Document 02/20/20 22:06 [facility] (Rec: 02/20/20 22:35 [facility] [id number]) Advance Directive, confirm on record Time 22:35 Person contacted Copy received No CM Discharge Assessment Start: 02/21/20 15:49 Freq: Status: Active Protocol: Document 02/21/20 15:49 IT[facility] (Rec: 02/21/20 15:50 ITV [id number]) Discharge Planning Assessment Advance Directives? No History Provided By Patient,Medical Record Prior Living Arrangements House Household Members spouse Independent with ADL's Yes Is patient alert and oriented? Yes Review Status In Process
--- NOTE | 2020-02-21 17:09 | PC.NURSE ---
Pt is initially irritable and anxious. Pt had just talked to care management and there was a misunderstanding about insurance coverage. Pt was on the phone with her health insurance company as I entered the room and felt reassured by the information she received, but was still irritated. Pt has bilateral neuropathy in feet. Pt is on RA, SPO2 99%. Lungs CTA. Pt denies SOB. Pt with almost no PACs and no recurrence of SVT since she received IV metoprolol and 500 ml iv fluid bolus. Pt denies chest pain/pressure/discomfort. Pt denies nausea, tolerating diet. Active BTs. Pt voiding adequate volume of clear, yellow urine. Call light at bedside and within reach. Pt instructed to notify RN with needs.
--- NOTE | 2020-02-21 17:15 | P.DS_ITS ---
History of Present Illness History of Present Illness Chief complaint: heart pain Narrative: See outpatient note of 02/11/20 for background. Patient has been experiencing left upper quadrant abdominal pain verses left- sided chest pain off and on for several months. She did not seek assistance due to concerns over the coronavirus pandemic. She had a CT scan done of her abdomen which demonstrated a right lower quadrant filling defect within the cecum but no abnormality in the left upper quadrant. When she was phoned to discuss these findings on CT she reported having irregular heartbeat as well as persistence of perhaps more chest pressure/persistence of her left upper quadrant discomfort She was instructed to go to the emergency department for evaluation. Evaluation there was unremarkable except for some supraventricular dysrhythmias. It was elected to admit her for stress testing and continued monitoring Discharge Providers Provider Date of admission: 02/20/20 20:37 Discharge Date: 02/21/20 Primary care physician: Talon Harden MD Discharge provider: Talon Harden MD Summary Hospital Course Discharge Diagnosis: 1. Atypical chest pain 2. Nonsustained supraventricular tachycardia 3. Hypertension 4. Mass in cecum 5. Acquired hypothyroidism Hospital Course: Patient was admitted to the hospital as above. She had repeated episodes of nonsustained SVT lasting up to 2 or 3 seconds at a time. She was given esc alating doses of oral beta-dora finally an IV dose of beta-dora as well as some IV fluids as she was modestly dehydrated. With this the SVT disappeared. Echocardiogram was essentially unremarkable except for the SVT Pharmacological stress test was unremarkable no evidence of ischemia patient's blood pressure did come down with some diazepam as well as the metoprolol. Patient is felt to be stable to return home on the evening of the 20 of February and will have close follow-up as the metoprolol is a new medication. Patient also be set up for outpatient colonoscopy and has an appointment early next week with General surgery for evaluation regarding the abnormality seen in her cecum on CT imaging which was done as an outpatient prior to this admission. Exam Vital Signs (past 8 hours): - 02/21/20 11:54 02/21/20 12:00 02/21/20 15:00 Temperature 98.9 F Pulse Rate 57 L Respiratory Rate 17 Blood Pressure 112/85 Pulse Oximetry 98 97 99 Oxygen Delivery Method Room Air Oxygen Flow Rate 0 Objective Labs Result Diagrams: 02/20/20 19:22 02/20/20 19:20 Labs: Laboratory Results - last 24 hr 02/20/20 02/20/20 02/20/20 19:20 19:20 19:22 WBC 6.0 RBC 4.62 Hgb 14.9 Hct 43.1 MCV 93.3 MCH 32.2 MCHC 34.5 RDW 13.2 Plt Count 218 Neut % (Auto) 65.4 Lymph % (Auto) 20.8 L Ashley % (Auto) 11.4 Eos % (Auto) 1.6 L Baso % (Auto) 0.8 Neut # (Auto) 3900 Lymph # (Auto) 1300 Ashley # (Auto) 700 Eos # (Auto) 100 Baso # (Auto) 100 PT 11.8 INR 1.0 APTT 31 Sodium 132 L Potassium 4.0 Chloride 102 Carbon Dioxide 25 BUN 10 Creatinine 0.44 L Estimated GFR > 60.0 BUN/Creatinine Ratio 22.7 H Glucose 99 Calcium 9.2 Total Bilirubin 1.1 AST 32 ALT 21 Alkaline Phosphatase 90 Total Creatine Kinase 75 CK-MB (CK-2) TNP CK-MB (CK-2) Rel Index TNP Troponin I < 0.012 Total Protein 7.7 Albumin 4.7 Globulin 3.0 Albumin/Globulin Ratio 1.6 Lipase 57 TSH Nasal Screen MRSA (PCR) COVID-19 PCR 02/20/20 02/21/20 02/21/20 21:12 00:24 03:05 WBC RBC Hgb Hct MCV MCH MCHC RDW Plt Count Neut % (Auto) Lymph % (Auto) Ashley % (Auto) Eos % (Auto) Baso % (Auto) Neut # (Auto) Lymph # (Auto) Ashley # (Auto) Eos # (Auto) Baso # (Auto) PT INR APTT Sodium Potassium Chloride Carbon Dioxide BUN Creatinine Estimated GFR BUN/Creatinine Ratio Glucose Calcium Total Bilirubin AST ALT Alkaline Phosphatase Total Creatine Kinase CK-MB (CK-2) CK-MB (CK-2) Rel Index Troponin I < 0.012 Total Protein Albumin Globulin Albumin/Globulin Ratio Lipase TSH Nasal Screen MRSA (PCR) Negative for mrsa COVID-19 PCR Negative 02/21/20 02/21/20 12:55 12:55 WBC RBC Hgb Hct MCV MCH MCHC RDW Plt Count Neut % (Auto) Lymph % (Auto) Ashley % (Auto) Eos % (Auto) Baso % (Auto) Neut # (Auto) Lymph # (Auto) Ashley # (Auto) Eos # (Auto) Baso # (Auto) PT INR APTT Sodium Potassium Chloride Carbon Dioxide BUN Creatinine Estimated GFR BUN/Creatinine Ratio Glucose Calcium Total Bilirubin AST ALT Alkaline Phosphatase Total Creatine Kinase CK-MB (CK-2) CK-MB (CK-2) Rel Index Troponin I < 0.012 Total Protein Albumin Globulin Albumin/Globulin Ratio Lipase TSH 2.60 Nasal Screen MRSA (PCR) COVID-19 PCR PFSH Medical History Acquired hypothyroidism (09/05/12) Diverticulosis of large intestine without hemorrhage (03/20/15) Essential hypertension Gastroesophageal reflux disease without esophagitis Generalized anxiety disorder (02/15/16) History of adenomatous polyp of colon (12/31/10) History of malignant neoplasm of breast (12/31/10) Idiopathic peripheral neuropathy (09/27/13) Irritable bowel syndrome with constipation (02/01/16) Menopausal syndrome (12/31/10) Osteopenia (12/31/10) Primary generalized hypertrophic osteoarthrosis (12/31/10) Raynaud's phenomenon without gangrene (03/15/13) Surgical History History of abdominoplasty History of bilateral mastectomy History of carpal tunnel release History of total mastectomy Status post appendectomy Status post hysterectomy (01/2011) Family History Father Coronary atherosclerosis Type II diabetes mellitus Malignant neoplasm of prostate Grandmother Uterine cancer Mother Breast CA Social History household members: spouse Smoking Status: Never smoker alcohol intake: current Discharge Plan Discharge Plan Patient Disposition: Home Discharge orders & Medications Prescriptions: New metoprolol tartrate 50 mg Tablet 50 mg PO BID Qty: 60 RF: 3 Continued CA PANTOTHENATE/FOLIC ACID/VIT (MULTIVITAMIN) 1 tab PO Q DAY Qty: 0 RF: 0 Calcium/Vitamin D (#CALCIUM 600 + VITAMIN D 600 MG-200 IU) 1 cap PO DAILY Qty: 0 RF: 0 VITAMIN D (Vitamin D3) 1,000 unit PO QDAY Qty: 0 RF: 0 [PROBIOTICS] 1 tab PO DAILY Qty: 0 RF: 0 vitamin E (dl, acetate) 400 unit capsule 400 unit PO .M,W,F RF: 0 magnesium 200 mg tablet 200 mg PO BID RF: 0 aspirin 81 mg tablet,delayed release (DR/EC) 81 mg PO DAILY RF: 0 potassium 99 mg tablet 99 mg PO BID RF: 0 levothyroxine [Synthroid] 50 mcg tablet 50 mcg PO QDAY Qty: 90 RF: 3 triamcinolone acetonide 0.1 % cream 1 applictn TOP TID Qty: 80 RF: 2 ibuprofen 200 mg Tablet 200 mg PO TID RF: 0 Follow up/Referrals: Talon Harden MD [Primary Care Provider] - 03/10/20 (Patient to call for appointment) Discharge Health Status Multidrug resistant organism: No MDRO Diet/Activity/Treatments Diet: Diet as Tolerated Visit Report/Discharge Packet Instructions: Amlodipine Discharge Data Primary Care Provider: Talon Harden Attending Provider: Talon Harden Quality VTE Deep Vein Thrombosis/Pulmonary Embolism Present on Admission: No
--- NOTE | 2020-02-21 18:26 | PC.NURSE ---
Discharge Note: Pt given discharge teaching on medications, diet, activity, metoprolol, PSVT and stroke s and s. Questions answered. Pt's telemetry and PIV removed without incident. Pt's belongings and medication from pharmacy given to her and pt helped to ER entrance and private vehicle without incident.
--- NOTE | 2020-02-23 14:09 | DI.NM.S_ITS ---
DATE OF SERVICE: 02/21/2020 PROCEDURE PERFORMED: Pharmacologic stress and rest myocardial perfusion imaging with gating to assess ejection fraction and regional wall motion. ORDERING PROVIDER: Dr. Talon Harden. INDICATIONS: The patient is a 69-year-old female admitted with epigastric and chest discomfort and palpitations. CARDIAC STRESS: Per protocol, 0.4 mg of regadenoson was infused, augmented with hand piano case and bench assembler exercise, with a normal hemodynamic response. She had no chest discomfort and minimal dyspnea and abdominal pain with stress. Her resting ECG shows sinus rhythm with frequent PACs, often in brief runs of SVT and borderline ST-segment abnormalities. There are no significant ST-segment shifts with stress. The frequency of her PACs improves with stress, but then goes back to previous frequency in recovery. No reversal agents were needed. Per protocol, 25.4 millicuries of technetium-99m Myoview were injected and then the patient was imaged 15 minutes later using a gated SPECT acquisition protocol. Earlier in the day while at rest, she was injected with 10.0 millicuries of technetium-99m Myoview and was imaged 30 minutes later again using a gated SPECT protocol. FINDINGS: 1. Raw data: There is fairly good myocardial tracer uptake with mild breast shadows noted. The lung/heart ratio was normal at 0.29 with a normal TID ratio of 1.16. 2. Quantitated gated SPECT: The quality of the gated images is quite poor because of the irregular heart rhythm, but grossly left ventricular systolic function appears normal without any obvious focal wall motion abnormality with an estimated ejection fraction of around 65%-70%. The resting images appear similar with no appreciable change between the two exams. 3. Myocardial perfusion imaging: Post-stress supine images shows a fairly normal myocardial perfusion pattern with mild defect in the proximal and mid inferior wall in a pattern consistent with diaphragmatic attenuation artifact, supported by its complete resolution on the prone images that reveal a completely normal myocardial perfusion pattern. The resting images show a similar perfusion to the pattern of the post-stress supine images without any areas of significant improvement. IMPRESSION: 1. Normal myocardial perfusion study. 2. Mild fixed inferior defect that completely resolves on prone imaging, consistent with diaphragmatic attenuation artifact. 3. Probable normal left ventricular size and function without any focal wall motion abnormality. 4. No angina or ECG evidence of ischemia with pharmacologic stress. She has frequent premature atrial contractions and short runs of supraventricular tachycardia, but no concerning ectopy. Maude, Mitzi - GONZALO/tanya/sb doc#: [id number]/job#: [id number] dd: 02/21/2020 16:46:00 dt: 02/21/2020 17:28:00 DICTATING /COPIES TO: Ko Chung MD COPIES MNE: YENI;
== END 2020-02-21 18:00 | disposition home or self-care (01) ==
LOC: ED 20:37 → AC 20:38 → ICU 21:41
PROVIDERS: Admitting Provider Internal Medicine; Emergency Provider Emergency Medicine; Family Provider Internal Medicine; PCP Internal Medicine; Referring Provider Emergency Medicine; Visit Provider Internal Medicine
DX: R07.89 Other chest pain (principal); R10.12 Left upper quadrant pain; M51.36 Other intervertebral disc degeneration, lumbar region; K63.9 Disease of intestine, unspecified; R10.13 Epigastric pain; R00.2 Palpitations
CPT/HCPCS: 36415; 71045; 71260; 74177; 78452; 80053; 82550; 83690; 84443; 84484; 85025; 85610; 85730; 87635; 87797; 93005; 93010; 93017; 93306; 99284; G0378; A9502; J1650; J2785; Q9967

== ENCOUNTER → 2020-03-02 10:23 | Outpatient (CLI) | payer OTHER, SELFPAY ==
[2020-02-20 21:15] VITALS: BMI 28.8
[2020-03-02 11:01] LABS: COVID19 -Nasal RAPID Negative (Negative)
== END ==
PROVIDERS: Family Provider Internal Medicine; PCP Internal Medicine; Visit Provider Specialist
DX: Z20.828 Contact with and (suspected) exposure to other viral communicable diseases (principal); Z01.812 Encounter for preprocedural laboratory examination
CPT/HCPCS: 87635; C9803

== ENCOUNTER 2020-03-03 11:10 | Day surgery (SDC) | payer OTHER, SELFPAY ==
[2020-02-20 21:15] VITALS: BMI 28.8
[2020-03-03] VITALS (15 sets, daily range): BP systolic 119–162; BP diastolic 68–88; PULSE 46–70; RESP 10–16; TEMP 36.4–37.1; O2SAT 96–100; BMI 28.1
--- NOTE | 2020-03-03 | DI.CT.S_ITS ---
PROCEDURE: CT ABDOMEN PELVIS W CON INDICATIONS: evaluate mass seen on prior CT. any free air? TECHNIQUE: After the administration of oral and intravenous contrast, 5 mm thick sections acquired from the diaphragms to the symphysis. 5 mm thick coronal and sagittal reformats were performed. For radiation dose reduction, the following was used: automated exposure control, adjustment of mA and/or kV according to patient size. COMPARISON: [facility], CT, CT CHEST ABD PEL W CON, 02/20/2020, 11:33. [facility], CT, ABDOMEN/PELVIS WITH CONTRAST, 04/23/2015, 12:35. [facility], CT, ABDOMEN/PELVIS WITH CONTRAST, 07/28/2011, 13:59. FINDINGS: Image quality: Excellent. ABDOMEN: Lung bases: Peripheral subpleural atelectasis or fibrosis is noted that is more prominent at the left lung base. Heart size is normal. Solid organs: Liver is normal in size and enhancement. Gallbladder appears normal. Biliary system is non-dilated. Pancreas enhances normally. Spleen is normal in size and enhancement. No adrenal nodules. Kidneys are normal in size and enhancement, without hydronephrosis. Peritoneum and bowel: Scattered diverticula are seen in the colon. The previously seen possible mass within the cecum at the ileocecal valve is not definitely seen on this exam, although the cecum is relatively underdistended. There is also underdistention and possible bowel wall thickening involving the majority of the colon. Mild pericolonic fat stranding is seen adjacent to the ascending and proximal transverse colon that is nonspecific but may be related to colitis. There are no signs of bowel obstruction. There is no pneumoperitoneum. No focal fluid collection is seen. Surgical clips are noted again noted in the right lower quadrant. Nodes and vessels: No retroperitoneal or mesenteric adenopathy. Aorta and inferior vena cava are normal in caliber. Miscellaneous: No ventral hernias. PELVIS: Genitourinary: Bladder wall thickness is normal. Miscellaneous: No inguinal hernias or adenopathy. Bones: No suspicious bony lesions. No vertebral body compression fractures. Multilevel degenerative changes are seen in the spine. There is grade 1 anterolisthesis of L4 on L5 IMPRESSION: 1. The previously seen cecal mass is not definitely redemonstrated, although evaluation is mildly compromised by underdistention and lack of contrast material within the colon. 2. No pneumoperitoneum. 3. Mild underdistention and apparent bowel wall thickening involving the majority of the colon with mild pericolonic fat stranding at the ascending and proximal transverse colon, which is suspicious for a nonspecific colitis. 4. Colonic diverticulosis without signs of focal diverticulitis. 1. Dictated by: Onofre Maza M.D. on 03/03/2020 at 16:26 Approved by: Onofre Maza M.D. on 03/03/2020 at 16:39
[2020-03-03] MEDS: LACTATED RINGERS 1,000 ML 200 ML IV (12:59)
--- NOTE | 2020-03-03 14:01 | PM.PREOP ---
Pre-operative Note COVID-19 COVID-19 status: Negative Result date/Date tested (Pos, Neg/Pending): 03/02/20 Interval Note History & Physical reviewed/Exam performed by Physician: Yes Changes to H&P: No ASA Class (for procedural sedation): II
[2020-03-03] MEDS: MIDAZOLAM 5 MG/5 ML VIAL IV (14:23)
[2020-03-03] MEDS: fentaNYL 250 MCG/5 ML INJ IV (14:25)
--- NOTE | 2020-03-03 14:59 | PM.OP.ENDO ---
Operative Date/Time/Diagnoses Date of procedure: 03/03/20 Time of procedure: 14:59 Pre-op diagnosis: Cecal mass seen on CT scan. Post-op diagnosis: other (Mass seen on CT not found on colonoscopy.) Procedure & Clinicians Study performed: Colonoscopy Same procedure as scheduled: Yes Indications: Abnormal CT scan Surgeon: Levar Robertson Procedure Notes SCOAP/Timeout: Were performed Procedure in detail: The patient was placed in the left lateral decubitus position and underwent IV sedation directed by the surgeon consisting of fentanyl and Versed. Digital exam was unremarkable. The scope was inserted and advanced through the rectum into the sigmoid, descending, transverse, and ascending colon. The patient was noted to have sigmoid diverticulosis. There were small diverticulum in the ascending colon near the cecum. Pressure had to be applied and a stiffener inserted order to reach the cecum.. The cecum was reached identified by the ileocecal valve and the appendiceal opening. The ileocecal valve was[not] cannulated despite multiple attempts to do so. The cecum was very clearly seen however. There was no mass within it. The scope was gradually brought out. No Polyps were found. The scope ultimately was retroflexed in the rectum. The appearance was remarkable for 1 large hemorrhoid without ulceration.. The scope was removed and the patient tolerated the procedure well. The prep was excellent. Scope withdrawal time: 6 minutes. Sedation minutes: 37 Findings: diverticulosis Specimen(s): none sent Complications: none Impression: Re-evaluate cecum with CT scan to make sure this mass is not extraluminal or due to some other phenomenon. Post-procedure Recommendations: Colonscopy in 10 years Follow up: as needed Disposition: PACU
--- NOTE | 2020-03-03 15:07 | SUR.PHASEI ---
pt. started drinking po contrast at this time
--- NOTE | 2020-03-03 15:16 | SUR.PHASEI ---
lab called for blood draw
--- NOTE | 2020-03-03 15:22 | SUR.PHASEI ---
labor mediator at bedside to draw pt's blood.
--- NOTE | 2020-03-03 15:36 | SUR.PHASEI ---
pt. finished drinking po contrast.
[2020-03-03 15:38] LABS: BUN Creatinine Ratio 16.3 (6-22); Blood Urea Nitrogen 7 mg/dL (7-17); Estimated Glomerular Filt Rate > 60.0 mL/min (>60)
--- NOTE | 2020-03-03 15:54 | SUR.PHASEI ---
pt. transported to CT at this time.
--- NOTE | 2020-03-03 15:59 | SUR.PHASEI ---
pt. transported back from [place], tol. velasquez.
--- NOTE | 2020-03-03 16:16 | SUR.PHASEII ---
Assumed care of pt, pt walked to BR, with SBA, steady when up.
--- NOTE | 2020-03-03 16:55 | SUR.PHASEII ---
Pt drinking hot tea, notified that she is waiting on results of CT Scan. Report printed, Dr. Pfeiffer's office called to see if pt is good to be discharged.
--- NOTE | 2020-03-03 17:23 | SUR.PHASEII ---
Pt not wanting to wait any longer, left with belongings and left in stable condition.
== END 2020-03-03 17:15 | disposition home or self-care (01) ==
PROVIDERS: Family Provider Internal Medicine; PCP Internal Medicine; Referring Provider Internal Medicine; Visit Provider Specialist
PROC: 0DJD8ZZ Inspection of Lower Intestinal Tract, Via Natural or Artificial Opening Endoscopic (ICD-10-PCS; CPT 45378; principal; 2020-03-03 12:15)
DX: K57.30 Diverticulosis of large intestine without perforation or abscess without bleeding (principal); Z85.3 Personal history of malignant neoplasm of breast; E03.9 Hypothyroidism, unspecified; I10 Essential (primary) hypertension; K64.8 Other hemorrhoids
CPT/HCPCS: 45378; 36415; 74177; 82565; 84520; 99152; 99153; J2250; J3010; Q9967

== ENCOUNTER → 2021-01-07 09:31 | Outpatient (CLI) | payer OTHER, SELFPAY ==
[2020-02-20 21:15] VITALS: BMI 28.8
[2021-01-07 11:19] LABS: Specimen Label KIT
== END ==
PROVIDERS: Family Provider Internal Medicine; PCP Internal Medicine; Referring Provider Internal Medicine; Visit Provider Internal Medicine
DX: C50.919 Malignant neoplasm of unspecified site of unspecified female breast (principal)
CPT/HCPCS: 36415

== ENCOUNTER → 2021-04-22 09:59 | Outpatient (CLI) | payer OTHER, SELFPAY ==
[2020-02-20 21:15] VITALS: BMI 28.8
[2021-04-22 11:31] LABS: Add Manual Diff / Slide Review NO; Basophils Absolute Auto 0 /uL (0-100); Basophils Percent Auto 0.7 % (0-2); Eosinophils Absolute Auto 100 /uL (0-450); Eosinophils Percent Auto 1.9 % (2-4); Hematocrit 40.8 % (36-46); Hemoglobin 14.1 g/dL (12.0-16.0); Lymphocytes Absolute Auto 800 /uL (1100-4500); Lymphocytes Percent Auto 16.4 % (25-40); Mean Corpuscular HGB Conc 34.6 % (30-36); Mean Corpuscular Hemoglobin 31.4 PG (26-34); Mean Corpuscular Volume 90.8 fL (80-100); Monocytes Absolute Auto 500 /uL (0-900); Monocytes Percent Auto 9.5 % (3-14); Neutrophils Absolute Auto 3600 /uL (1500-7000); Neutrophils Percent Auto 71.5 % (50-75); Platelet Count 176 X10^3/uL (150-400); Red Blood Cell Count 4.49 X10^6/uL (4.0-5.2); Red Cell Distribution Width 13.1 % (11.6-14.8); White Blood Cell Count 5.1 X10^3/uL (4.5-11.0)
[2021-04-22 11:48] LABS: Erythrocyte Sedimentation Rate 9 MM/HR (0-20)
[2021-04-22 11:51] LABS: Alanine Aminotransferase 17 IU/L (<35); Albumin 4.3 g/dL (3.5-5.0); Albumin Globulin Ratio 1.7 (1.0-2.8); Alkaline Phosphatase 66 U/L (38-126); Aspartate Aminotransferase 29 IU/L (14-36); BUN Creatinine Ratio 11.8 (6-22); Bilirubin Total 1.2 mg/dL (0.2-1.3); Blood Urea Nitrogen 6 mg/dL (7-17); C-Reactive Protein Quant < 0.5 mg/dL (<1.0); Calcium 9.5 mg/dL (8.4-10.2); Carbon Dioxide 31 mmol/L (22-32); Chloride 99 mmol/L (98-107); Estimated Glomerular Filt Rate > 60.0 mL/min (>60); Globulin 2.5 g/dL (1.7-4.1); Glucose 95 mg/dL (80-110); HEMOLYSIS < 15 (0-50); Potassium 4.5 mmol/L (3.4-5.1); Sodium 133 mmol/L (137-145); Total Protein 6.8 g/dL (6.3-8.2)
== END ==
PROVIDERS: Family Provider Internal Medicine; PCP Internal Medicine; Referring Provider Internal Medicine; Visit Provider Internal Medicine
DX: E03.9 Hypothyroidism, unspecified (principal); I10 Essential (primary) hypertension; R07.9 Chest pain, unspecified
CPT/HCPCS: 36415; 80053; 85025; 85651; 86140

== ENCOUNTER → 2021-04-28 10:38 | Outpatient (CLI) | payer OTHER, SELFPAY ==
[2020-02-20 21:15] VITALS: BMI 28.8
--- NOTE | 2021-04-28 10:41 | DI.CT.S_ITS ---
PROCEDURE: CT CHEST W CON INDICATIONS: left chest wall pain, upper left arm pain TECHNIQUE: After the administration of intravenous contrast, 5 mm thick sections acquired from the pulmonary apices to the posterior costophrenic angles. 1 mm axial lung, 5 mm thick coronal and sagittal reformats and 7 mm axial MIP were acquired. For radiation dose reduction, the following was used: automated exposure control, adjustment of mA and/or kV according to patient size. COMPARISON: [facility], CT, CT CHEST ABD PEL W CON, 02/20/2020, 11:33. FINDINGS: Image quality: Excellent. Lungs and pleura: No acute air space opacities. No pleural effusions or pneumothorax. Central and peripheral airways are patent and normal in caliber. Mediastinum: Heart size is normal. No pericardial effusion. No mediastinal or hilar adenopathy by size criteria. Thoracic aorta and central pulmonary arteries are normal in size. Esophagus is normal in caliber. No hiatal hernia. Bones and chest wall: No suspicious bony lesions. Multifocal degenerative change. No vertebral body compression fractures. No axillary or supraclavicular adenopathy by size criteria. 1.4 cm hypoattenuating lesion in the left thyroid. Abdomen: Visualized upper abdominal solid organs appear normal. Upper abdominal bowel loops are normal in caliber. IMPRESSION: 1. No significant intrathoracic abnormality. 2. 1.4 cm hypoattenuating lesion in the left thyroid. Consider correlation with thyroid function tests and ultrasound as warranted. Dictated by: Vishnu Kat M.D. on 04/28/2021 at 13:40 Approved by: Vishnu Kat M.D. on 04/28/2021 at 13:47
== END ==
PROVIDERS: Family Provider Internal Medicine; PCP Internal Medicine; Referring Provider Internal Medicine; Visit Provider Internal Medicine
DX: R07.9 Chest pain, unspecified (principal); M79.622 Pain in left upper arm; E07.9 Disorder of thyroid, unspecified
CPT/HCPCS: 71260; Q9967

== ENCOUNTER 2021-05-02 11:49 | Emergency (ER) | payer OTHER, SELFPAY ==
[2020-02-20 21:15] VITALS: BMI 28.8
[2021-05-02 11:52] VITALS: BP 192/96; PULSE 60; RESP 11; TEMP 36.4; O2SAT 99
--- NOTE | 2021-05-02 12:16 | ED.EYEPROB ---
HPI - Eye Problem General Chief complaint: Eye Problems Stated complaint: seeing lights; high blood pressure Time Seen by Provider: 05/02/21 11:59 Source: patient and family (spouse) Mode of arrival: Ambulatory Limitations: no limitations History of Present Illness HPI Narrative: This is a 70-year-old female with prior history of hypertension, hypothyroidism, breast cancer with bilateral mastectomy in the 1980s and chronic persistent chest pain. Patient arrives today with complaint of vision change with colitis scope type changes to her vision for about 30 minutes which have resolved. Patient states they occurred about a 1/2 hour prior to arrival. She states that was present in both eyes in if she would close her right or left eye it would still be present. It seem to move away when she would try to look directly at it. She denies any pain or discomfort in her eyes or headache when it occurred. She states her vision seems to have returned to normal at this time. She has never had these symptoms in the past. She denies any loss of vision or a curtain or black areas. She does wear glasses and follows with Dr. Gómez for Ophthalmology. She denies any prior ophthalmology surgeries, no retinal issues in the past. She takes levothyroxine, metoprolol and 81 mg aspirin daily. Patient has multiple allergies to medications. Related Data Home Medications Medication Instructions Recorded Confirmed CA PANTOTHENATE/FOLIC ACID/VIT 1 tab PO Q DAY #0 12/31/10 04/22/21 (MULTIVITAMIN) Calcium/Vitamin D (#CALCIUM 600 + 1 cap PO DAILY #0 09/28/11 04/22/21 VITAMIN D 600 MG-200 IU) [PROBIOTICS] 1 tab PO DAILY #0 03/07/16 04/22/21 aspirin 81 mg tablet,delayed 81 mg PO DAILY 08/25/17 04/22/21 release potassium 99 mg tablet 99 mg PO BID 08/25/17 04/22/21 VITAMIN D (Vitamin D3) 2,000 unit PO QDAY #0 03/10/20 04/22/21 magnesium 250 mg tablet 250 mg PO DAILY 03/10/20 04/22/21 triamcinolone acetonide 0.1 % 1 applic TOP TID PRN gram 03/10/20 04/22/21 topical cream Previous Rx's Medication Instructions Recorded levothyroxine 50 mcg tablet 50 mcg PO QDAY #90 tab 12/30/20 (Synthroid) metoprolol tartrate 50 mg tablet 50 mg PO BID #180 tab 02/12/21 Allergies Allergy/AdvReac Type Severity Reaction Status Date / Time gentamicin Allergy Severe OPHTH - Verified 04/22/21 09:28 REDNESS AND DISCHARGE FROM EYES niacin Allergy Severe severe Verified 04/22/21 09:28 edema/low BP morphine Allergy Mild RED STREAKS Verified 04/22/21 09:28 penicillin G Allergy Mild RED STREAKS Verified 04/22/21 09:28 linaclotide [From LINZESS] AdvReac Intermediate abd pain Verified 04/22/21 09:28 increase hydromorphone AdvReac Mild PANIC Verified 04/22/21 09:28 ATTACK clorazepate dipotassium AdvReac uti's, GI Verified 04/22/21 09:28 sx TATTOO INK Allergy Mild SEVERE Uncoded 04/22/21 09:28 ITCHING Review of Systems Review of Systems ROS Unobtainable: All systems reviewed & are unremarkable except as noted in HPI and below Patient History Medical History Acquired hypothyroidism (09/05/12) Diverticulosis of large intestine without hemorrhage (03/20/15) Essential hypertension Gastroesophageal reflux disease without esophagitis Generalized anxiety disorder (02/15/16) History of adenomatous polyp of colon (12/31/10) History of malignant neoplasm of breast (12/31/10) Idiopathic peripheral neuropathy (09/27/13) Irritable bowel syndrome with constipation (02/01/16) Menopausal syndrome (12/31/10) Osteopenia (12/31/10) Paroxysmal SVT (supraventricular tachycardia) Primary generalized hypertrophic osteoarthrosis (12/31/10) Raynaud's phenomenon without gangrene (03/15/13) Surgical History History of abdominoplasty History of bilateral mastectomy History of carpal tunnel release History of total mastectomy Status post appendectomy Status post hysterectomy (01/2011) Family History Father Coronary atherosclerosis Type II diabetes mellitus Malignant neoplasm of prostate Grandmother Uterine cancer Mother Breast CA Social History household members: spouse Smoking Status: Never smoker alcohol intake: current Smoking Status: Never smoker alcohol intake frequency: a few times a week Substance Use Type: does not use Exam Narrative Exam Narrative: GEN: well nourished, well appearing female, alert and oriented x 3, patient appears to be in mild distress. HEENT: Atraumatic, pupils are equal round reactive to light, extraocular movements are intact, nares are clear, TMs are clear with no fluid, there is no conjunctival pallor. Throat is clear without any exudates, erythema, tonsillar enlargement or uvular deviation Visual acuity: right [20/25], left [20/25] without correction. IOP: Right 20 mm Hg, Left 24 mm Hg General: no globe trauma Eyelids: normal inspection. Conjunctiva/Sclera: normal inspection Corneas: normal inspection, examined with fluroscein without uptake bilaterally. EOM: intact, no palsy/entrapment Pupils: PERRL, normal accomadation, pupil normal Anterior Chambers: normal inspection, no hypema Posterior: normal fundoscopic on bilaterally although difficult exam. HEART: Regular rate and rhythm without murmur, clicks, rubs. No carotid bruits, pulses are equal in upper and lower extremities LUNGS:Lungs clear to auscultation, no wheezes, rales, crackles, chest moves symmetrically ABD:bowel sounds normal, soft, non-tender, no guarding, rebound, rigidity, no masses noted, no hepatosplenomegaly MSCL: full range of motion, normal gait NEURO:CN 2-12 intact, sensation normal SKIN: No rash, erythema or other skin changes. Initial Vital Signs Initial Vital Signs: Vital Signs Temperature 97.6 F 05/02/21 11:52 Pulse Rate 60 05/02/21 11:52 Respiratory Rate 11 L 05/02/21 11:52 Blood Pressure 192/96 H 05/02/21 11:52 Pulse Oximetry 99 05/02/21 11:52 Course Orders Ordered: Discontinued Medications Fluorescein Sodium (Fluorescein 1 Mg Strip) 1 mg EYE-BOTH NOW ONE Stop: 05/02/21 12:16 Proparacaine HCl (Proparacaine 0.5% Ophth Shahida) 1 drops EYE-BOTH NOW ONE Stop: 05/02/21 12:16 Vital Signs Vital signs: Vital Signs - 8 hr 05/02/21 11:52 02/27/22 12:22 Temperature 97.6 F Pulse Rate 60 60 Respiratory Rate 11 L 18 Blood Pressure 192/96 H 167/76 H Pulse Oximetry 99 99 MDM - Eye Problem MDM Narrative Medical decision making narrative: This is a 70-year-old female comes emergency department with complaint of a kalediascope vision change in both eyes bilaterally. Patient states it resolved. No that would indicate up logic migraine. It was bilateral patient did check age individual and I making retinal tear less likely on her eye exam was reassuring, patient did not have any changes that would be consistent with stroke or other neurologic event. She was hypertensive but quickly improved without intervention. Discussed with patient I would like to have her follow up with Ophthalmology. She did have some questions about chronic chest pain that is been present followed up regularly by her primary care physician she has had stress testing, CT of her chest in the past week but was anxious about a thyroid nodule that was present. We reviewed all of this. Discharge Plan Departure Patient Disposition: Home Clinical Impression: Alteration in vision Activity Restrictions/Additional Instructions: Follow-up with Dr. Gómez or one of his partners tomorrow for recheck. Please call 1st thing in the morning to set up an appointment. They can perform a more thorough eye exam to evaluate the back of your eye more fully. Your imaging does not show any clear changes to the lymph nodes of the left side, chest or axilla from 04/2021. Please return for sudden new or worsening vision changes, loss of vision, an area of black or loss of color in her site, severe headaches, new numbness, tingling or weakness, difficulty with speech, difficulty with moving extremities or other new or concerning symptoms. Prescriptions: No Action CA PANTOTHENATE/FOLIC ACID/VIT (MULTIVITAMIN) 1 tab PO Q DAY Qty: 0 0RF Calcium/Vitamin D (#CALCIUM 600 + VITAMIN D 600 MG-200 IU) 1 cap PO DAILY Qty: 0 0RF [PROBIOTICS] 1 tab PO DAILY Qty: 0 0RF VITAMIN D (Vitamin D3) 2,000 unit PO QDAY Qty: 0 0RF levothyroxine [Synthroid] 50 mcg tablet 50 mcg PO QDAY Qty: 90 3RF metoprolol tartrate 50 mg tablet 50 mg PO BID Qty: 180 3RF aspirin 81 mg tablet,delayed release (DR/EC) 81 mg PO DAILY 0RF potassium 99 mg tablet 99 mg PO BID 0RF magnesium 250 mg tablet 250 mg PO DAILY 0RF triamcinolone acetonide 0.1 % cream 1 applic TOP TID [id number] Rx Instructions: uses on her back, only uses as needed. Occasional per patient Referrals: Bill Gómez MD [Physician] - Talon Harden MD [Primary Care Provider] -
[2021-05-02 12:22] VITALS: BP 167/76; PULSE 60; RESP 18; O2SAT 99
--- NOTE | 2021-05-02 12:25 | PC.NURSE ---
Patient reports feeling of kaleidoscopic vision in bilateral eyes that has since resolved.
== END 2021-05-02 13:12 | disposition home or self-care (01) ==
PROVIDERS: Emergency Provider Emergency Medicine; Family Provider Internal Medicine; PCP Internal Medicine
DX: H53.8 Other visual disturbances (principal)
CPT/HCPCS: 99282

== ENCOUNTER → 2021-06-03 14:50 | Outpatient (CLI) | payer OTHER, SELFPAY ==
[2020-02-20 21:15] VITALS: BMI 28.8
--- NOTE | 2021-06-03 14:52 | DI.ECHO.S_ITS ---
[facility]---------+ [facility] +---------+ : : [address] : [address] : : : : [id number] : : : : Phone: [phone]+ Echocardiogram Report + + :Name: FRANCO RODRIGUEZ Study Date: 06/03/2021 Height: 64 in : :[facility] ReadingLocation: Weight: 170 lb : : Gender: Female BSA: 1.8 m2 : :: 1950 Age: 70 yrs BP: 157/92 mmHg: :Reason For Study: CHEST PAIN AND LEFT ARTM PAIN : :Ordering Physician: ROSA, : :SOCO Carrington Performed By: Claudia Hernandez : :Referring: SOCO LEE : + + Interpretation Summary The ejection fraction is estimated to be 60-65%. There is mild tricuspid regurgitation. The right ventricular systolic pressure is estimated to be at least 28 mmHg based on an estimated right atrial pressure of 3 mm Hg. Procedure: A two-dimensional transthoracic echocardiogram with color flow and Doppler was performed. The study quality was technically adequate. Comparison is made with the echocardiogram of 02/21/2020. The patient was in sinus bradycardia with heart rates between 54-60 bpm during the exam. Left Ventricle: The left ventricle is normal in size and wall thickness. The ejection fraction is estimated to be 60-65%. Left ventricular wall motion is normal. Right Ventricle: The right ventricle is normal in size and function. Atria: The left atrium is severely dilated. Right atrial size is normal. There is no Doppler evidence for an interatrial shunt. Mitral Valve: The mitral valve is normal in structure and function. There is mild mitral annular calcification. There is trace mitral regurgitation. Aortic Valve: The aortic valve is trileaflet. The aortic valve opens well. There is no aortic valve stenosis. No aortic regurgitation is present. Tricuspid Valve: The tricuspid valve is normal in structure and function. There is mild tricuspid regurgitation. The right ventricular systolic pressure is estimated to be at least 28 mmHg based on an estimated right atrial pressure of 3 mm Hg. Pulmonic Valve: The pulmonic valve leaflets are thin and pliable; valve motion is normal. There is mild pulmonic regurgitation. Great Vessels: The aortic root is normal size. The dimensions of the ascending aorta are normal. The IVC is of normal diameter and collapses greater than 50% with a sniff. This suggests a low right atrial pressure of 3 mm Hg. Pericardium/ Pleura There is no pericardial effusion. There is no pleural effusion. MMode/2D Measurements & Calculations LVIDd: 4.8 cm LVOT diam: 2.0 cm LVIDs: 3.0 cm Ao root diam: 3.4 cm FS: 35.9 % asc Aorta Diam: 3.5 cm IVSd: 0.72 cm Ao Arch Diam (Prox Trans): 2.8 cm LVPWd: 0.77 cm LV sheth. diameter/BSA (cm/m^2): 2.6 LV sys. diameter/BSA (cm/m^2): 1.7 LA A2 area: 25.0 cm2 RA long axis: 5.1 cm LA A4 area: 25.2 cm2 RA area: 16.5 cm2 LA length (vol): 5.6 cm RA vol: 45.2 ml LA vol: 94.9 ml RA : 24.8 ml/m2 LA vol index: 52.0 ml/m2 IVC diam: 1.9 cm RVD1 (basal): 3.8 cm TAPSE: 1.8 cm Doppler Measurements & Calculations Ao V2 max: 142.7 cm/sec LVOT Max Sunny: 107.3 cm/sec Ao V2 mean: 92.9 cm/sec LV V1 max P.6 mmHg Ao max P.1 mmHg LV V1 VTI: 25.3 cm Ao mean P.9 mmHg MER(I,D): 2.7 cm2 Ao V2 VTI: 31.1 cm MER(V,D): 2.5 cm2 sev ratio: 0.81 MER indexed to BSA (cm^2/m^2): 1.5 MV E max sunny: 64.3 cm/sec TR max sunny: 235.6 cm/sec MV A max sunny: 72.3 cm/sec TR max P.5 mmHg MV E/A: 0.89 PA V2 max: 82.7 cm/sec Med Peak E' Sunny: 4.5 cm/sec PA V2 mean: 53.3 cm/sec E/E' med: 14.2 PA mean P.3 mmHg Lat Peak E' Sunny: 6.6 cm/sec E/E' lat: 9.8 E/e' average: 12.0 MV dec time: 0.23 sec SV(LVOT): 82.6 ml Reading Physician:04:32 PM
== END ==
PROVIDERS: Family Provider Internal Medicine; PCP Internal Medicine; Referring Provider Internal Medicine; Visit Provider Internal Medicine
DX: I37.1 Nonrheumatic pulmonary valve insufficiency (principal); R07.9 Chest pain, unspecified; I07.1 Rheumatic tricuspid insufficiency; M79.602 Pain in left arm
CPT/HCPCS: 93306

== ENCOUNTER → 2021-06-04 10:11 | Outpatient (CLI) | payer OTHER, SELFPAY ==
[2020-02-20 21:15] VITALS: BMI 28.8
[2021-06-04 13:32] LABS: COVID19 -Nasal RAPID Negative (Negative)
== END ==
PROVIDERS: Family Provider Internal Medicine; PCP Internal Medicine; Visit Provider Family Medicine Sleep Medicine
DX: Z20.822 Contact with and (suspected) exposure to COVID-19 (principal)
CPT/HCPCS: 87635; C9803

== ENCOUNTER → 2021-06-07 09:07 | Outpatient (CLI) | payer OTHER, SELFPAY ==
[2020-02-20 21:15] VITALS: BMI 28.8
--- NOTE | 2021-06-07 09:08 | DI.NM.S_ITS ---
PROCEDURE: NM JOE PERF SPECT R&S PHARM Rest and pharmacological stress myocardial perfusion SPECT with gated imaging and ejection fraction RADIOPHARMACEUTICAL: 11.7 mCi Tc-99m tetrafosmin IV at rest and 26.4 mCi Tc-99m tetrafosmin IV at peak effect of pharmacological stress. Mtj-fuh-ojnvrzaw was performed. INDICATIONS: chest pain and left arm pain TECHNIQUE: Radiopharmaceutical was injected at peak stress test, and also at rest. SPECT images were obtained. SPECT myocardial perfusion images were displayed in short axis, horizontal long axis, and vertical long axis views. Gated images were reviewed using [employer] software. COMPARISON: None. CARDIAC STRESS: A pharmacologic stress test was performed under the supervision of an attending staff, using an infusion of lexiscan 0.4mg IV X1. Hemodynamic data: There is normal blood pressure and heart rate response to pharmacologic stress. Symptoms: The patient denied anginal chest pain. Aminophylline: none EKG: Resting ECG shows sinus rhythm with very mild anterolateral ST depressions. With lexiscan, the ST depressions became mildly worse; rare PACs present. FINDINGS: Raw data: There is good myocardial uptake of radiotracer. No significant motion artifacts. Vnkd-kq-myfqr ratio is 0.36 (normal is less than 0.38 for tetrafosmin tracer). Left ventricle function: Gated images demonstrate normal left ventricular wall thickening. No segmental wall motion abnormalities. No transient ischemic dilation; TID is 0.91 (normal less than 1.3). Left ventricle resting end diastolic volume is 89mL. Left ventricle stress ejection fraction is 84%; normal range is above 45%. Myocardial perfusion: There is a mildly intense fixed inferior wall defects that is probably diaphragmatic attenuation as it similar to the nuc study done 02/21/2020 (stress prone images at that time were normal). No prone images done today. IMPRESSION: Low risk, probably normal pharmaceutical nuclear stress test 1) No perfusion evidence of ischemia or infarction. 2) Normal left ventricular size, wall motion, and systolic function (EF post stress 84%). 3) ECG non-diagnostic due to baseline ST depressions. 4) No angina during the study. 5) Compared to the nuclear stress test done 02/21/2020, no significant change. Dictated by: Liz Saez MD on 06/07/2021 at 16:23 Approved by: Liz Saez MD on 06/07/2021 at 16:26
--- NOTE | 2021-06-07 14:20 | PM.TREADMILL ---
Cardiac Stress Test Report Referral & Results Date Patient Seen: 06/07/21 Requesting provider: Talon Harden Indication: Atypical chest pain Rest ECG: Unremarkable Procedure Note: After both written and verbal informed consent the patient had an IV started by the diagnostic imaging RN and then was hooked up to the treadmill monitoring system, and was then injected with the Pat scan material. The Cardiolite was then immediately administered. The patient spent an additional 2-3 minutes also upon being monitored. She did not develop any additional symptoms The patient had a normal response to all infused materials. Impression: See perfusion imaging for details Please note: Actual ECG tracings can be found in the PACS system.
== END ==
PROVIDERS: Family Provider Internal Medicine; PCP Internal Medicine; Referring Provider Internal Medicine; Visit Provider Internal Medicine
DX: R07.89 Other chest pain (principal); M79.602 Pain in left arm
CPT/HCPCS: 78452; 93016; 93017; 93018; A9502; J2785

== ENCOUNTER → 2021-08-16 10:45 | Outpatient (CLI) | payer OTHER, SELFPAY ==
[2020-02-20 21:15] VITALS: BMI 28.8
--- NOTE | 2021-08-16 10:47 | DI.US.S_ITS ---
PROCEDURE: US THYROID INDICATIONS: LEFT THYROID NODULE ON CT TECHNIQUE: Real-time scanning was performed of the thyroid gland, with image documentation. COMPARISON: None. FINDINGS: Right: Thyroid lobe measures 4.4 x 1.0 x 1 point cm, and is homogeneous in echotexture. Left: Thyroid lobe measures 4.4 x 1.4 x 1.8 cm, and is homogenous in echotexture. Isthmus: 1.8 mm thick. Nodule number: 1 Location: Left mid Size: 2.4 x 1.01.4 cm. Composition: Solid Echogenicity: Hypoechoic Shape: wider than tall. Margins: Smooth Echogenic foci: None Total points: 4 ACR TI-RADS category: Moderately suspicious Nodule number: 2 Location: Left superior Size: 0.7 x 0.4 x 0.7 cm. Composition: Solid Echogenicity: Hypoechoic Shape: wider than tall. Margins: Smooth Echogenic foci: None Total points: 4 ACR TI-RADS category: Moderately suspicious Nodule number: 3 Location: Right mid Size: 0.6 x 0.5 x 0.6 cm. Composition: Solid Echogenicity: Hypoechoic Shape: wider than tall. Margins: Smooth Echogenic foci: Non Total points: 4 ACR TI-RADS category: Moderately suspicious IMPRESSION: Thyroid nodules. Based on imaging characteristics, size and criteria outlined below fine-needle aspiration of nodule #1 is recommended ACR TI-RADS definitions and recommendations: TI-RADS 1 (benign): 0 points. FNA not needed. TI-RADS 2 (not suspicious): 2 points. FNA not needed. TI-RADS 3 (mildly suspicious): 3 points. * FNA if 2.5 cm or larger, follow up if 1.5 cm or larger (at 1, 3, and 5 years). TI-RADS 4 (moderately suspicious): 4-6 points. * FNA if 1.5 cm or larger, follow up if 1 cm or larger (at 1, 2, 3, and 5 years). TI-RADS 5 (highly suspicious): 7 points or more. * FNA if 1 cm or larger, follow up if 0.5 cm or larger (every year for 5 years). Dictated by: Mony Zimmerman MD, PhD on 08/16/2021 at 14:32 Approved by: Mony Zimmerman MD, PhD on 08/16/2021 at 14:36
== END ==
PROVIDERS: Family Provider Internal Medicine; PCP Internal Medicine; Referring Provider Internal Medicine; Visit Provider Internal Medicine
DX: E04.2 Nontoxic multinodular goiter (principal)
CPT/HCPCS: 76536

== ENCOUNTER → 2021-09-15 10:12 | Outpatient (CLI) | payer OTHER, SELFPAY ==
[2020-02-20 21:15] VITALS: BMI 28.8
--- NOTE | 2021-09-15 | PATH_ITS ---
Note [facility] Accession Number: [id number] TESTS RESULT FLAG UNITS REF RANGE LAB Clinician Provided Cytology Information No. of containers..01 Other (Miscellaneous) No. of containers..06 Previously Prepared Cytology Slide Source: L THYROID NODULE DIAGNOSIS: 01 L THYROID NODULE NEGATIVE FOR MALIGNANT CELLS. [place] CATEGORY II. SPECIMEN CONSISTS OF BENIGN FOLLICULAR CELLS, HEMOSIDERIN-LADEN MACROPHAGES, COLLOID, AND BLOOD. THIS PATTERN IS CONSISTENT WITH A BENIGN FOLLICULAR NODULE. Pathologist ICD10: E04.1 Signed out by: Lela Chandler MD, Pathologist NPI- [id number] Performed by: Brando Willis, Business Continuity Strategy Director ([facility]) Gross description: 01 30 CC, PINK, CLEAR Also received 1 RNA vial, 8 quick-stained, and 8 alcohol fixed slides. /[facility] 09/16/2021 1538 [facility] FLAG LEGEND: L-Low Normal,H-High Normal,LL-Alert Low,HH-Alert High <-Panic Low,>-Panic High,A-Abnormal,AA-Critical Abnormal Performed at: 01 =[facility] [address], [place] [address] Deion Najera MD, Performed at: 01 [facility] [address], [place], [place] [id number] MD Deion Najera MD Phone: [phone]
--- NOTE | 2021-09-15 10:13 | DI.US.S_ITS ---
PROCEDURE: US FINE NEEDLE ASPIRATION INDICATIONS: Left thyroid nodule TECHNIQUE: The indications, alternatives, benefits, risks, and complications of the procedure were explained to the patient. Written informed consent was obtained and placed in the chart. The thyroid region was examined sonographically and a site was chosen for ultrasound guided percutaneous sampling. The skin was prepared and draped in the usual fashion, and anesthetized with 1% lidocaine infiltrated from the skin down to the thyroid gland. Multiple passes were then performed, with contents emptied into an appropriate pathology specimen container. A bandage was applied to the area of access at completion of the study. COMPARISON: [facility], US, US THYROID, 08/16/2021, 10:50. FINDINGS: Location(s) of lesion(s) sampled: Left lobe, mid. Nodule #1 from the prior thyroid ultrasound report. [place]: 25 gauge hypodermic needles. Number of passes: 8 Medications: 1% lidocaine for local anaesthesia. Complications: None. IMPRESSION: Successful ultrasound-guided thyroid nodule fine needle aspiration, with cytology results pending. Please see chart below for management recommendations based on cytology results. [place] [facility] ReportingRecommendationsNon-diagnostic* Repeat US-guided FNA, with on-site cytology evaluation if possible. * Repeated non-diagnostic nodules without high suspicion US features: close observation vs surgical consult. * Consider surgery if nodule has high suspicion US features, grows >20% in 2 dimensions on followup, or patient has clinical risk factors for malignancy. Benign* If nodule has high suspicion US features: repeat US and FNA within 12 months. * If nodule has low to intermediate suspicion US features: repeat US at 12-24 months. If nodule grows (20% increase in at least 2 dimensions, with minimal increase of 2 mm or >50% change in volume), or development of new suspicious US features, then repeat FNA or continue followup. * If nodule has very low suspicion US features: followup US at >24 months. Atypia of undetermined significance, follicular lesion of undetermined significanceRepeat FNA, molecular testing, followup US, or surgical consult.Follicular neoplasm, suspicious for follicular neoplasmSurgical consult; also consider molecular testing. Suspicious for malignancySurgical consult.MalignantSurgical consult. Dictated by: Onofre Horton M.D. on 09/15/2021 at 11:55 Approved by: Onofre Horton M.D. on 09/15/2021 at 11:58
== END ==
PROVIDERS: Family Provider Internal Medicine; PCP Internal Medicine; Referring Provider Internal Medicine; Visit Provider Internal Medicine
DX: E04.1 Nontoxic single thyroid nodule (principal)
CPT/HCPCS: 10005

== ENCOUNTER → 2023-03-06 12:46 | Outpatient (CLI) | payer OTHER, SELFPAY ==
[2020-02-20 21:15] VITALS: BMI 28.8
[2023-03-06 14:42] LABS: Influenza A - CEPHEID Flu A NEGATIVE (NEGATIVE); Influenza B - CEPHEID Flu B NEGATIVE (NEGATIVE); Respiratory Syncytial Virus Negative (Negative)
[2023-03-06 15:12] LABS: COVID-19 CEPHEID 4-PLEX PCR Negative (Negative)
== END ==
PROVIDERS: Family Provider Internal Medicine; PCP Internal Medicine; Visit Provider Physician Assistant
DX: R05.1 Acute cough (principal)
CPT/HCPCS: 0241U

== ENCOUNTER → 2023-03-08 08:20 | Outpatient (CLI) | payer OTHER, SELFPAY ==
[2020-02-20 21:15] VITALS: BMI 28.8
== END ==
PROVIDERS: Family Provider Internal Medicine; PCP Internal Medicine; Visit Provider Nurse Practitioner Family
DX: J02.9 Acute pharyngitis, unspecified (principal)
CPT/HCPCS: 87070

== ENCOUNTER → 2023-04-18 10:40 | Outpatient (CLI) | payer OTHER, SELFPAY ==
[2020-02-20 21:15] VITALS: BMI 28.8
--- NOTE | 2023-04-18 10:42 | DI.RAD.S_ITS ---
PROCEDURE: XR DEXA AXIAL SKELETON INDICATIONS: bone disorder COMPARISON: None. FINDINGS: This blank DEXA report has been sent in error by the PACS system. The correct and complete report will be forthcoming in 1-2 days. Thank you for your patience and understanding. Dictated by: Carlos Rodriguez M.D. on 04/18/2023 at 16:26 Approved by: Carlos Rodriguez M.D. on 04/18/2023 at 16:26
--- NOTE | 2023-04-18 10:52 | DI.DEXA.S_ITS ---
Bone Density Report Name: FRANCO RODRIGUEZ Age: 72 Sex: Female Ethnicity: White Date of : 1950 Indication: osteopenia; Referring Provider: SOCO LEE Study: Bone densitometry was performed. Exam Date: April 18, 2023 Accession number: [id number] Bone Density: Region BMD T-score Z-score Classification AP Spine(L1, L2, L4) 0.776 -2.3 0.0 Osteopenia Femoral Neck (Left) 0.452 -3.6 -1.5 Osteoporosis Total Hip (Left) 0.632 -2.5 -0.8 Osteoporosis Femoral Neck (Right) 0.522 -2.9 -0.9 Osteoporosis Total Hip (Right) 0.621 -2.6 -0.9 Osteoporosis Total Hip Mean 0.627 -2.6 -0.9 Osteoporosis World Health Organization criteria for BMD impression classify patients as: Normal (T-score at or above -1.0), Osteopenia (T-score between -1.0 and -2.5), or Osteoporosis (T-score at or below -2.5). 10-year Fracture Risk: FRAX not reported because: Some T-score for Spine Total or Hip Total or Femoral Neck at or below -2.5 Previous Exams: -- Region Exam Age BMD T-score BMD Change BMD Change Date g/cm2 vs Baseline vs Previous -- AP Spine (L1-L2,L4) 04/18/2023 72 0.776 -2.3 -0.052 (-6.3%)# -0.052 (-6.3%)# 06/22/2004 53 0.828 -1.9 Total Hip(Left) 04/18/2023 72 0.632 -2.5 -0.181 (-22.3%)# -0.181 (-22.3%)# 06/22/2004 53 0.813 -1.1 Total Hip(Right) 04/18/2023 72 0.621 -2.6 -0.209 (-25.2%)# -0.209 (-25.2%)# 06/22/2004 53 0.830 -0.9 -- *Denotes significance at 95% confidence level, LSC for AP Spine = 0.022 g/cm2, LSC for Total Hip = 0.027 g/cm2 # Denotes dissimilar scan types or analysis methods Impression: The patient has osteoporosis, based on the Left Femoral Neck T-score. No significant bone loss was observed. Discussion: INCREASED RISK OF FRACTURE. BONE DENSITY IS UNDESIRABLY LOW AT ONE OR MORE SKELETAL SITES, CONSISTENT WITH POSTMENOPAUSAL OSTEOPOROSIS. This patient's lowest T-score meets the World Health Organization's (WHO) criteria for osteoporosis at one or more sites (T-score -2.5 or below). In untreated patients, the risk of osteoporotic fracture increases approximately two-fold for each 1.0 SD decrease in T-score. Low bone density is not the only risk factor for fracture; also consider factors such as patient's age, frailty or poor health, risk of falling, risk of injury, previous osteoporotic fracture, family history of osteoporosis, cigarette smoking, low body weight, etc. Not everyone with low bone mineral density has osteoporosis; osteomalacia and other metabolic bone disorders should also be considered. Patients who have osteoporosis should be evaluated for specific diseases and conditions (secondary causes) that may cause or contribute to bone loss. The [place] [employer] (AACE) and National Osteoporosis Foundation (NOF) recommend pharmacologic intervention for all postmenopausal women whose T-score is in this range. The patient should follow a healthful lifestyle (good nutrition with adequate calcium and vitamin D, and appropriate weight-bearing exercise). Follow-Up: Consider a repeat BMD and Vertebral Fracture Assessment (VFA) exam in 2 years or sooner if medically necessary, to reassess this patient's status. Reported by: TONY JIMÉNEZ M.D. on 04/18/2023 11:03:00 AM.a
== END ==
PROVIDERS: Family Provider Internal Medicine; PCP Internal Medicine; Referring Provider Internal Medicine; Visit Provider Internal Medicine
DX: M81.0 Age-related osteoporosis without current pathological fracture (principal)
CPT/HCPCS: 77080

== ENCOUNTER → 2023-05-19 16:21 | Outpatient (CLI) | payer OTHER, SELFPAY ==
[2020-02-20 21:15] VITALS: BMI 28.8
[2023-05-19 17:15] LABS: Alanine Aminotransferase 22 IU/L (<35); Albumin 4.4 g/dL (3.5-5.0); Albumin Globulin Ratio 1.4 (1.0-2.8); Alkaline Phosphatase 89 U/L (38-126); Aspartate Aminotransferase 31 IU/L (14-36); BUN Creatinine Ratio 23.3 (6-22); Bilirubin Total 1.5 mg/dL (0.2-1.3); Blood Urea Nitrogen 10 mg/dL (7-17); Calcium 9.4 mg/dL (8.4-10.2); Carbon Dioxide 28 mmol/L (22-32); Chloride 100 mmol/L (98-107); Cholesterol 209 mg/dL (140-199); Estimated Glomerular Filt Rate > 60 mL/min (>60); Globulin 3.2 g/dL (1.7-4.1); Glucose 87 mg/dL (80-110); HDL Cholesterol 74 mg/dL (40-60); HEMOLYSIS < 15 (0-50); LDL Cholesterol Calculated 121 mg/dL (<100); Potassium 4.1 mmol/L (3.4-5.1); Sodium 130 mmol/L (137-145); Total Protein 7.6 g/dL (6.3-8.2); Triglycerides 71 mg/dL (35-150)
[2023-05-19 17:29] LABS: Free T4, Direct Thyroxine 1.27 ng/dL (0.78-2.19)
[2023-05-19 17:43] LABS: Thyroid Stimulating Hormone 2.41 uIU/mL (0.47-4.68)
== END ==
PROVIDERS: Family Provider Internal Medicine; PCP Internal Medicine; Referring Provider Internal Medicine; Visit Provider Internal Medicine
DX: E03.9 Hypothyroidism, unspecified (principal); I10 Essential (primary) hypertension; M81.0 Age-related osteoporosis without current pathological fracture
CPT/HCPCS: 36415; 80053; 80061; 84439; 84443

== ENCOUNTER → 2023-07-18 08:16 | Outpatient (CLI) | payer OTHER, SELFPAY ==
[2020-02-20 21:15] VITALS: BMI 28.8
== END ==
PROVIDERS: Family Provider Internal Medicine; PCP Internal Medicine; Visit Provider Nurse Practitioner Family
DX: J02.9 Acute pharyngitis, unspecified (principal)
CPT/HCPCS: 87070

== ENCOUNTER → 2023-07-26 15:08 | Outpatient (CLI) | payer OTHER, SELFPAY ==
[2020-02-20 21:15] VITALS: BMI 28.8
--- NOTE | 2023-07-26 15:09 | DI.US.S_ITS ---
PROCEDURE: US THYROID INDICATIONS: f/u on nodules, sensation in throat TECHNIQUE: Real-time scanning was performed of the thyroid gland, with image documentation. COMPARISON: [facility], US, US THYROID, 08/16/2021, 10:50. FINDINGS: Thyroid: Right lobe measures 3.4 x 1.2 x 1.2 cm. Left lobe measures 4.1 x 1.4 x 1.7 cm. Isthmus is 0.2 cm thick. Echotexture is homogeneous. Nodule number: 1 Location: Left mid Size: Stable at 2 point cm. Composition: Solid Echogenicity: Hypoechoic Shape: wider than tall. Margins: Smooth Echogenic foci: None Total points: 4 ACR TI-RADS category: 4 IMPRESSION: Stable left thyroid nodule measuring 2.4 centimeters. Recommend correlation with fine-needle aspiration results. ACR TI-RADS definitions and recommendations: TI-RADS 1 (benign): 0 points. FNA not needed. TI-RADS 2 (not suspicious): 2 points. FNA not needed. TI-RADS 3 (mildly suspicious): 3 points. * FNA if 2.5 cm or larger, follow up if 1.5 cm or larger (at 1, 3, and 5 years). TI-RADS 4 (moderately suspicious): 4-6 points. * FNA if 1.5 cm or larger, follow up if 1 cm or larger (at 1, 2, 3, and 5 years). TI-RADS 5 (highly suspicious): 7 points or more. * FNA if 1 cm or larger, follow up if 0.5 cm or larger (every year for 5 years). Dictated by: Rodrigo Rodriguez M.D. on 07/26/2023 at 17:40 Approved by: Rodrigo Rodriguez M.D. on 07/26/2023 at 17:42
== END ==
PROVIDERS: Family Provider Internal Medicine; PCP Internal Medicine; Referring Provider Physician Assistant; Visit Provider Physician Assistant
DX: E04.1 Nontoxic single thyroid nodule (principal); R07.0 Pain in throat
CPT/HCPCS: 76536

== ENCOUNTER → 2023-10-02 11:54 | Outpatient (CLI) | payer OTHER, SELFPAY ==
[2020-02-20 21:15] VITALS: BMI 28.8
[2023-10-02 12:18] LABS: Estimated Glomerular Filt Rate > 60 mL/min (>60)
== END ==
PROVIDERS: Radiology Diagnostic Radiology; Family Provider Internal Medicine; PCP Internal Medicine; Referring Provider Internal Medicine; Visit Provider Internal Medicine
DX: R07.0 Pain in throat (principal)
CPT/HCPCS: 36415; 82565

== ENCOUNTER → 2023-10-03 11:16 | Outpatient (CLI) | payer OTHER, SELFPAY ==
[2020-02-20 21:15] VITALS: BMI 28.8
--- NOTE | 2023-10-03 11:17 | DI.CT.S_ITS ---
PROCEDURE: CT SOFT TISSUE NECK W CON INDICATIONS: Pain in throat TECHNIQUE: After the administration of intravenous contrast, 3.0 mm axial sections acquired from the sella to the aortic arch. Additional oblique axial 3.0 mm sections acquired through the pharynx. 3 mm thick coronal and sagittal reformats were generated. For radiation dose reduction, the following was used: automated exposure control. COMPARISON: [facility], , THYROID, 07/26/2023, 15:25. FINDINGS: Image quality: Excellent. Lymph nodes: No enlarged lymph nodes seen throughout the neck. Vessels: Visualized vasculature appears patent. Neck spaces: The oropharynx, nasopharynx, and pharynx demonstrate no mucosal lesions. The vocal cords, false vocal cords, pyriform sinuses, epiglottis, vallecula, and tongue base all appear normal. Extramucosal spaces appear unremarkable. Glands: The parotid and submandibular glands appear normal. Thyroid gland demonstrates unchanged left lobe focus of low attenuation measuring approximately 2.1 cm. There is no airway compromise. Miscellaneous: Visualized brain and orbits appear normal. Lung apices appear clear. Superficial soft tissues appear normal. Bones: No suspicious bony lesions. Visualized sinuses and mastoids appear unremarkable. IMPRESSION: Unchanged appearance of left thyroid mass identified on thyroid ultrasound. No airway compromise. Dictated by: Tatiana Camarillo M.D. on 10/03/2023 at 12:43 Approved by: Tatiana Camarillo M.D. on 10/03/2023 at 12:57
== END ==
PROVIDERS: Family Provider Internal Medicine; PCP Internal Medicine; Referring Provider Otolaryngology; Visit Provider Otolaryngology
DX: E07.9 Disorder of thyroid, unspecified; R07.0 Pain in throat; R09.A2 Foreign body sensation, throat
CPT/HCPCS: 70491; Q9967

== ENCOUNTER → 2023-10-12 12:13 | Outpatient (ROUT) | payer OTHER, SELFPAY ==
[2020-02-20 21:15] VITALS: BMI 28.8
== END ==
PROVIDERS: Family Provider Internal Medicine; PCP Internal Medicine; Visit Provider Dermatology
DX: S01.80XA Unspecified open wound of other part of head, initial encounter (principal)
CPT/HCPCS: 87070; 87075; 87147; 87205

== ENCOUNTER → 2023-12-15 08:10 | Outpatient (CLI) | payer OTHER, SELFPAY ==
[2020-02-20 21:15] VITALS: BMI 28.8
--- NOTE | 2023-12-15 08:12 | DI.RAD.S_ITS ---
PROCEDURE: XR THORACIC SPINE 3V INDICATIONS: fell on 11/28 - pain at waist level TECHNIQUE: 3 views of the thoracic spine were acquired. COMPARISON: None. FINDINGS: Thoracic spine curvature and alignment: Mild rightward curve appreciated. Bones: Mild wedging of the mid lower thoracic vertebral bodies noted. This is almost certainly chronic. Disc spaces: Moderate degenerative disc disease seen throughout the mid lower thoracic spine. Intervertebral foramen: Grossly normal in width. Soft tissues: No soft tissue swelling, calcification or mass. IMPRESSION: Mild wedging mid lower thoracic vertebral bodies is almost certainly chronic. Degeneration Dictated by: Talon Rizvi M.D. on 12/15/2023 at 9:21 Approved by: Talon Rizvi M.D. on 12/15/2023 at 9:23
--- NOTE | 2023-12-15 08:12 | DI.RAD.S_ITS ---
PROCEDURE: XR LUMBAR SPINE MIN 4V INDICATIONS: fell on 11/28 - pain at waist level TECHNIQUE: 5 views of the lumbar spine were acquired, including bilateral oblique views. COMPARISON: None. FINDINGS: Lumbar spine curvature and alignment: Grade 1 L4-5 spondylolisthesis due to degenerate facet disease appreciated. The remaining lumbar spine is anatomically aligned. Bones: Mild L4 compression fracture appreciated. Suspect osteoporosis. Disc spaces: Severe L2-3 and moderate L4-5 degenerative disc disease noted. There is moderate L4-5 and L5-S1 degenerative facet disease. Soft tissues: No soft tissue swelling, calcification or mass. IMPRESSION: Multilevel degeneration. Grade 1 L4-5 spondylolisthesis Mild L4 compression fracture . Dictated by: Talon Rizvi M.D. on 12/15/2023 at 9:23 Approved by: Talon Rizvi M.D. on 12/15/2023 at 9:25
[2023-12-15 10:53] LABS: Vitamin D 25 Hydroxy (D3) 53.4 ng/mL (30.0-100.0)
[2023-12-15 17:49] LABS: Vitamin B12 760 pg/mL (239-931)
== END ==
PROVIDERS: Family Provider Internal Medicine; PCP Internal Medicine; Referring Provider Physician Assistant; Visit Provider Physician Assistant
DX: M43.16 Spondylolisthesis, lumbar region (principal); S32.049A Unspecified fracture of fourth lumbar vertebra, initial encounter for closed fracture; M51.360 Other intervertebral disc degeneration, lumbar region with discogenic back pain only; M51.34 Other intervertebral disc degeneration, thoracic region; M48.54XA Collapsed vertebra, not elsewhere classified, thoracic region, initial encounter for fracture; M81.0 Age-related osteoporosis without current pathological fracture; G60.9 Hereditary and idiopathic neuropathy, unspecified; W19.XXXA Unspecified fall, initial encounter; Y92.009 Unspecified place in unspecified non-institutional (private) residence as the place of occurrence of the external cause
CPT/HCPCS: 36415; 72072; 72110; 82306; 82607

== ENCOUNTER → 2024-10-02 12:35 | Outpatient (CLI) | payer OTHER, SELFPAY ==
[2020-02-20 21:15] VITALS: BMI 28.8
--- NOTE | 2024-10-02 12:37 | DI.CT.S_ITS ---
PROCEDURE: CT ORBIT BI WO CON INDICATIONS: Exophthalmos TECHNIQUE: Noncontrast 2.5 mm axial images acquired through the orbits, with coronal and sagittal reformats. For radiation dose reduction, the following was used: automated exposure control, adjustment of mA and/or kV according to patient size. COMPARISON: None. FINDINGS: Image quality: Excellent. Orbits: Globes are symmetric and well-positioned. No metallic foreign bodies. The optic nerves are normal in size. No retrobulbar masses or fat abnormalities. The extra-ocular muscles are normal and symmetrical in appearance. Lacrimal glands are normal in size. Optic chiasm is normal. Intracranial: Visualized portions of the cerebral hemispheres, brainstem, and spinal cord are normal. Bones and sinuses: Visualized calvarium and facial bones appear intact. Visualized sinuses and mastoids are clear. IMPRESSION: No exophthalmos Approved by: Tavo Bui M.D. on 10/02/2024 at 16:29
== END ==
LOC: CT 12:36
PROVIDERS: Family Provider Internal Medicine; PCP Internal Medicine; Referring Provider Ophthalmology; Visit Provider Ophthalmology
DX: H05.20 Unspecified exophthalmos (principal)
CPT/HCPCS: 70480

== ENCOUNTER → 2024-12-12 10:29 | Outpatient (CLI) | payer OTHER, SELFPAY ==
[2020-02-20 21:15] VITALS: BMI 28.8
[2024-12-12 13:02] LABS: Alanine Aminotransferase 17 IU/L (<35); Albumin 4.5 g/dL (3.5-5.0); Albumin Globulin Ratio 1.7 (1.0-2.8); Alkaline Phosphatase 95 U/L (38-126); Blood Urea Nitrogen 9 mg/dL (7-17); Calcium 9.0 mg/dL (8.4-10.2); Carbon Dioxide 26 mmol/L (22-32); Chloride 97 mmol/L (98-107); Estimated Glomerular Filt Rate > 60 mL/min (>60); Globulin 2.7 g/dL (1.7-4.1); Glucose 83 mg/dL (70-99); HEMOLYSIS < 15 (0-50); Potassium 4.6 mmol/L (3.4-5.1); Sodium 131 mmol/L (137-145); Total Protein 7.2 g/dL (6.3-8.2)
[2024-12-12 13:10] LABS: Free T3, Triiodothyronine Free 3.50 pg/mL (2.77-5.27); Free T4, Direct Thyroxine 1.47 ng/dL (0.78-2.19)
[2024-12-12 13:24] LABS: Thyroid Stimulating Hormone 1.86 uIU/mL (0.47-4.68)
== END ==
PROVIDERS: Family Provider Internal Medicine; PCP Internal Medicine; Referring Provider Internal Medicine; Visit Provider Internal Medicine
DX: I10 Essential (primary) hypertension (principal); E03.9 Hypothyroidism, unspecified; K21.9 Gastro-esophageal reflux disease without esophagitis
CPT/HCPCS: 36415; 80053; 84439; 84443; 84481

== ENCOUNTER → 2025-02-19 09:44 | Outpatient (CLI) | payer OTHER, SELFPAY ==
[2020-02-20 21:15] VITALS: BMI 28.8
[2025-02-19 11:26] LABS: Influenza A - CEPHEID Flu A POSITIVE (NEGATIVE); Influenza B - CEPHEID Flu B NEGATIVE (NEGATIVE)
[2025-02-19 14:14] LABS: COVID-19 CEPHEID 4-PLEX PCR Negative (Negative)
== END ==
PROVIDERS: Family Provider Internal Medicine; PCP Internal Medicine; Visit Provider Physician Assistant
DX: J02.9 Acute pharyngitis, unspecified (principal)
CPT/HCPCS: 87637

== ENCOUNTER → 2025-02-19 09:58 | Outpatient (CLI) | payer OTHER, SELFPAY ==
[2020-02-20 21:15] VITALS: BMI 28.8
--- NOTE | 2025-02-19 09:59 | DI.RAD.S_ITS ---
PROCEDURE: XR CHEST 2V INDICATIONS: persistent cough, flu exposure x >7dyas TECHNIQUE: 2 views of the chest were acquired. COMPARISON: [facility], CR, XR CHEST 1V, 02/20/2020, 19:47. FINDINGS AND IMPRESSION: No airspace consolidation or pleural effusion. Normal heart size. Degenerative osseous changes. Exaggerated thoracic kyphosis. Dictated by: Franco Galdamez M.D. on 02/19/2025 at 13:06 Approved by: Franco Galdamez M.D. on 02/19/2025 at 13:07
== END ==
PROVIDERS: Family Provider Internal Medicine; PCP Internal Medicine; Referring Provider Physician Assistant; Visit Provider Physician Assistant
DX: J02.9 Acute pharyngitis, unspecified (principal); J06.9 Acute upper respiratory infection, unspecified; M40.294 Other kyphosis, thoracic region
CPT/HCPCS: 71046; 87637